=== PATIENT | female | born 1975 | race Caucasian/White ===

== ENCOUNTER → 2021-01-21 10:07 | Outpatient (CLI) | payer OTHER, MEDICAID, SELFPAY ==
[2021-01-21 11:14] LABS: Hematocrit 41.2 % (36-46); Hemoglobin 13.6 g/dL (12.0-16.0); Mean Corpuscular Hemoglobin 26.9 PG (26-34); Mean Corpuscular Volume 81.5 fL (80-100); Platelet Count 328 X10^3/uL (150-400); Red Blood Cell Count 5.06 X10^6/uL (4.0-5.2); Red Cell Distribution Width 13.6 % (11.6-14.8); White Blood Cell Count 9.1 X10^3/uL (4.5-11.0)
[2021-01-21 11:44] LABS: Erythrocyte Sedimentation Rate 18 MM/HR (0-20)
[2021-01-21 11:56] LABS: Alanine Aminotransferase 28 IU/L (<35); Albumin 4.4 g/dL (3.5-5.0); Albumin Globulin Ratio 1.3 (1.0-2.8); Alkaline Phosphatase 101 U/L (38-126); Aspartate Aminotransferase 39 IU/L (14-36); BUN Creatinine Ratio 20.6 (6-22); Bilirubin Total 1.3 mg/dL (0.2-1.3); Blood Urea Nitrogen 20 mg/dL (7-17); C-Reactive Protein Quant 2.5 mg/dL (<1.0); Calcium 9.7 mg/dL (8.4-10.2); Carbon Dioxide 25 mmol/L (22-32); Chloride 103 mmol/L (98-107); Cholesterol 192 mg/dL (140-199); Estimated Glomerular Filt Rate > 60.0 mL/min (>60); Globulin 3.5 g/dL (1.7-4.1); Glucose 78 mg/dL (70-100); HDL Cholesterol 62 mg/dL (40-60); HEMOLYSIS < 15 (0-50); LDL Cholesterol Calculated 101 mg/dL (<100); Potassium 3.7 mmol/L (3.4-5.1); Sodium 137 mmol/L (137-145); Total Protein 7.9 g/dL (6.3-8.2); Triglycerides 146 mg/dL (35-150)
[2021-01-21 12:35] LABS: TSH w/ Reflex to FT4 0.92 uIU/mL (0.47-4.68)
[2021-01-23 15:42] LABS: ANA Screen, IFA Negative (.)
== END ==
PROVIDERS: PCP Nurse Practitioner Family; Referring Provider Nurse Practitioner Family; Visit Provider Nurse Practitioner Family
DX: M25.50 Pain in unspecified joint (principal); I10 Essential (primary) hypertension; J45.909 Unspecified asthma, uncomplicated; Z13.6 Encounter for screening for cardiovascular disorders; F32.9 Major depressive disorder, single episode, unspecified
CPT/HCPCS: 36415; 80053; 80061; 84443; 85027; 85651; 86038; 86140

== ENCOUNTER 2021-03-04 09:05 | Emergency (ER) | payer OTHER, MEDICAID, SELFPAY ==
[2021-03-04] VITALS (8 sets, daily range): BP systolic 122–176; BP diastolic 68–86; PULSE 80–97; RESP 16–23; TEMP 36.8; O2SAT 94–99; BMI 37.5
--- NOTE | 2021-03-04 09:17 | DI.RAD.S_ITS ---
PROCEDURE: XR CHEST 1V INDICATIONS: chest pain TECHNIQUE: One view of the chest was acquired. COMPARISON: None. FINDINGS: Surgical changes and devices: None. Lungs and pleura: Lungs are clear. No pleural effusions or pneumothorax. Mediastinum: Mediastinal contours appear normal. Heart size is normal. Bones and chest wall: No suspicious bony lesions. Overlying soft tissues appear unremarkable. IMPRESSION: No acute disease. Dictated by: Marcel Sethi M.D. on 03/04/2021 at 9:40 Approved by: Marcel Sethi M.D. on 03/04/2021 at 9:43
[2021-03-04 09:33] LABS: Add Manual Diff / Slide Review NO; Basophils Absolute Auto 100 /uL (0-100); Basophils Percent Auto 0.7 % (0-2); Eosinophils Absolute Auto 0 /uL (0-450); Eosinophils Percent Auto 0.4 % (2-4); Hematocrit 40.6 % (36-46); Hemoglobin 13.4 g/dL (12.0-16.0); Lymphocytes Absolute Auto 2900 /uL (1100-4500); Mean Corpuscular HGB Conc 32.9 % (30-36); Mean Corpuscular Hemoglobin 26.8 PG (26-34); Mean Corpuscular Volume 81.4 fL (80-100); Monocytes Absolute Auto 400 /uL (0-900); Monocytes Percent Auto 4.6 % (3-14); Neutrophils Absolute Auto 5900 /uL (1500-7000); Neutrophils Percent Auto 63.3 % (50-75); Platelet Count 372 X10^3/uL (150-400); Red Blood Cell Count 4.99 X10^6/uL (4.0-5.2); Red Cell Distribution Width 13.8 % (11.6-14.8); White Blood Cell Count 9.4 X10^3/uL (4.5-11.0)
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
[2021-03-04 09:42] LABS: Alanine Aminotransferase 16 IU/L (<35); Albumin 4.2 g/dL (3.5-5.0); Albumin Globulin Ratio 1.2 (1.0-2.8); Alkaline Phosphatase 74 U/L (38-126); Aspartate Aminotransferase 41 IU/L (14-36); BUN Creatinine Ratio 23.6 (6-22); Bilirubin Total 0.9 mg/dL (0.2-1.3); Blood Urea Nitrogen 21 mg/dL (7-17); Calcium 9.6 mg/dL (8.4-10.2); Carbon Dioxide 24 mmol/L (22-32); Chloride 103 mmol/L (98-107); Creatine Kinase 209 U/L (30-135); Estimated Glomerular Filt Rate > 60.0 mL/min (>60); Globulin 3.6 g/dL (1.7-4.1); Glucose 94 mg/dL (70-100); HEMOLYSIS < 15 (0-50); Lipase 143 U/L (23-300); Potassium 3.4 mmol/L (3.4-5.1); Sodium 138 mmol/L (137-145); Total Protein 7.8 g/dL (6.3-8.2)
[2021-03-04] MEDS: ASPIRIN 81 MG CHEW TAB 324 MG PO (09:43)
[2021-03-04] MEDS: SODIUM CHLORIDE 0.9% 1,000 ML 150 ML IV (09:45)
[2021-03-04] MEDS: NITROGLYCERIN 0.4 MG SL TAB SL (09:45)
[2021-03-04 09:54] LABS: NT-proBNP (BNP-Adult 18+) 54 pg/mL (<125); Troponin I < 0.012 ng/mL (0.01-0.034)
[2021-03-04 09:57] LABS: CKMB % Relative Index 0.5 % (1.5-5.0); Creatine Kinase MB 1.09 ng/mL (<2.37)
[2021-03-04 10:08] LABS: C-Reactive Protein Quant 3.1 mg/dL (<1.0)
[2021-03-04 10:12] LABS: D Dimer 396 ng/mL (<230)
[2021-03-04 10:16] LABS: Erythrocyte Sedimentation Rate 26 MM/HR (0-20)
--- NOTE | 2021-03-04 10:49 | DI.CT.S_ITS ---
PROCEDURE: CT ANGIO CHEST PE PROTOCOL INDICATIONS: chest pain, tachycardia, critical dimer, smoker, contr TECHNIQUE: After the administration of intravenous contrast, 2 mm thick sections acquired from the pulmonary apices to the posterior costophrenic angles. 3-dimensional maximum intensity projection (MIP) coronal and sagittal reformats were then acquired through the thorax. For radiation dose reduction, the following was used: automated exposure control, adjustment of mA and/or kV according to patient size. COMPARISON: None. FINDINGS: Image quality: Excellent. Pulmonary arteries: Pulmonary arteries are normal in size, and demonstrate no intraluminal filling defects to suggest central pulmonary embolism. Lungs and pleura: Lungs are clear. No pleural effusions or pneumothorax. Central and peripheral airways are patent. Mediastinum: Heart size is normal, without pericardial effusion. No mediastinal or hilar adenopathy. Thoracic aorta is normal in caliber and enhancement. Esophagus is normal in caliber, without hiatal hernia. Bones and chest wall: No suspicious bony lesions. Ribs and thoracic spine appear intact throughout. No axillary or supraclavicular adenopathy. Abdomen: Visualized upper abdominal solid organs appear normal in the early arterial phase of enhancement. IMPRESSION: No pulmonary embolism or other acute finding in the chest. Dictated by: James Woodward M.D. on 03/04/2021 at 10:56 Approved by: James Woodward M.D. on 03/04/2021 at 10:57
[2021-03-04 12:24] LABS: Troponin I < 0.012 ng/mL (0.01-0.034)
== END 2021-03-04 12:52 | disposition home or self-care (01) ==
PROVIDERS: Emergency Provider Emergency Medicine; PCP Nurse Practitioner Family
DX: R07.89 Other chest pain (principal); R00.0 Tachycardia, unspecified
CPT/HCPCS: 36415; 71045; 71275; 80053; 82550; 82553; 83690; 83880; 84484; 85025; 85379; 85651; 86140; 93005; 96360; 96361; 99284; Q9967

== ENCOUNTER → 2021-05-16 09:53 | Outpatient (CLI) | payer OTHER, MEDICAID, SELFPAY ==
[2021-05-16 13:48] LABS: COVID19 -Nasal RAPID Negative (Negative)
== END ==
PROVIDERS: PCP Nurse Practitioner Family; Visit Provider Surgery
DX: Z20.822 Contact with and (suspected) exposure to COVID-19 (principal); Z01.812 Encounter for preprocedural laboratory examination
CPT/HCPCS: 87635; C9803

== ENCOUNTER 2021-05-19 13:49 | Day surgery (SDC) | payer OTHER, MEDICAID, SELFPAY ==
[2021-05-19] VITALS (7 sets, daily range): BP systolic 122–140; BP diastolic 70–87; PULSE 83–104; RESP 13–17; TEMP 36–36.7; O2SAT 95–99; BMI 37.3
[2021-05-19] MEDS: LACTATED RINGERS 1,000 ML 84 ML IV (14:15)
--- NOTE | 2021-05-19 15:36 | PM.HP.1 ---
History of Present Illness History of Present Illness Date Patient Seen: 05/19/21 Time Patient Seen: 15:36 Chief complaint: DX COLONOSCOPY Narrative: H/o colon polyps, grandmother had colon cancer. No new GI symptoms. Last scope was 6 years. Patient History Medical History Ankle pain (~1979) Anorexia nervosa Anxiety (~1982) Asthma (~1990) Chicken pox (~1978) Depression (2018) Essential hypertension (2015) Foot pain (~1979) History of colon polyps (2013) Human papilloma virus (~2014) Joint pain Osteoarthritis (~2004) Psoriasis (~1986) Wears glasses Surgical History Anesthesia History of ankle surgery (~1979) History of section (~12/28/05) Family & Social History Family History Father Diabetes mellitus History of heart disease Hypertension Hyperlipidemia Stroke Mother Cancer Diabetes mellitus Multiple myeloma Brother Stroke History of heart disease Hypertension Sister Hypertension History of heart disease Sister Mental health problem Social History: household members significant other Tobacco & Substance use: Smoking Status Never smoker alcohol intake current alcohol intake frequency holiday/special occasion Substance Use Type marijuana Meds Home Medications and Allergies Home Medications Medication Instructions Recorded Confirmed Type albuterol sulfate 90 mcg/actuation 2 puff INHALATION Q4-6H PRN #8.5 g 01/15/21 05/19/21 History aerosol inhaler (Proventil HFA) bupropion HCl 300 mg 24 hr tablet, 300 mg PO QAM 01/15/21 05/19/21 History extended release (Wellbutrin XL) losartan 100 1 tab PO DAILY 01/15/21 05/19/21 History mg-hydrochlorothiazide 25 mg tablet meloxicam 7.5 mg tablet 7.5 mg PO DAILY 01/15/21 05/19/21 History norgestimate 0.18 mg/0.215 mg/0.25 1 tab PO DAILY 01/15/21 05/19/21 History mg-ethinyl estradiol 25 mcg tablet (Tri-Lo-Blanche) pregabalin 75 mg capsule (Lyrica) 75 mg PO TID #90 cap 05/06/21 05/19/21 Rx Allergies Allergy/AdvReac Type Severity Reaction Status Date / Time lactose AdvReac Intermediate GI upset Verified 05/19/21 14:05 soy AdvReac Intermediate GI upset Verified 05/19/21 14:05 morphine AdvReac Mild ITCHING Verified 05/19/21 14:05 Exam Vital Signs (past 8 hours): - 05/19/21 14:07 Temperature 98 F Pulse Rate 97 H Respiratory Rate 16 Blood Pressure 133/85 Pulse Oximetry 99 Oxygen Delivery Method Room Air Oxygen Flow Rate 0 Const General: cooperative and healthy appearing HENMT Head: normal to inspection Ears: hearing grossly normal bilaterally Eyes General: appearance normal, both eyes and all related structures Neck Neck: trachea midline Resp Effort & Inspection: normal respiratory effort and able to speak in complete sentences Auscultation: clear to auscultation bilaterally Cardio Rate: regular rate Rhythm: regular rhythm GI Inspection: normal to inspection Skin General: no rashes or lesions noted Neuro Cognition: normal cognition Extrem General: full ROM Psych Appearance: grossly normal Judgment: judgment good Assessment & Plan Assessment & Plan narrative: h/o colon polyps, here for colonoscopy with moderated sedation COVID-19 COVID-19 status: Negative Time Spent With Patient Time with patient: less than 30 minutes Critical Care time: I spent a total of [] minutes of critical care time on this patient's care today; this time is exclusive of procedural time.
[2021-05-19] MEDS: fentaNYL 250 MCG/5 ML INJ IV (15:48)
[2021-05-19] MEDS: MIDAZOLAM 5 MG/5 ML VIAL IV (15:48)
--- NOTE | 2021-05-19 15:59 | PM.OP.ENDO ---
Operative Date/Time/Diagnoses Date of procedure: 05/19/21 Time of procedure: 15:59 Pre-op diagnosis: h/o colon polyps Post-op diagnosis: same Procedure & Clinicians Study performed: Colonoscopy Same procedure as scheduled: Yes Indications: History of colon polyps Surgeon: Sandhya Garcia Procedure Notes SCOAP/Timeout: Done Procedure in detail: Preop diagnosis: History of colon polyps Postop diagnosis: Same Operative procedure: Colonoscopy with moderate sedation Surgeon: Jenny Garcia MD Anesthetic: Fentanyl 200 micro g, Versed 8 mg Findings: No diverticulosis, no polyps Procedure: Patient is placed in a lateral position. Rectal exam is performed showing normal tone no masses. Colonoscope inserted into the rectum and advanced to ileocecal valve with minimal difficulty. Insufflation obstruction the scope and the above findings. Impression: No polyps identified on this colonoscopy. No significant diverticulosis. Plan: Repeat colonoscopy in 5 years due to history of colon polyps and unknown age of grandmother with colon cancer diagnosis Scope withdrawal time: 4 minutes Sedation minutes: 16 Specimen(s): none sent Complications: none Impression: No polyps, no significant diverticulosis Post-procedure Recommendations: Colonscopy in 5 years and Continue medication(s) Plan for aftercare: Home. Good hydration. Follow up: as needed Disposition: PACU
== END 2021-05-19 16:45 | disposition home or self-care (01) ==
PROVIDERS: PCP Nurse Practitioner Family; Referring Provider Surgery; Visit Provider Surgery
PROC: 0DJD8ZZ Inspection of Lower Intestinal Tract, Via Natural or Artificial Opening Endoscopic (ICD-10-PCS; CPT 45378; principal; 2021-05-19 15:15)
DX: Z86.010 Personal history of colon polyps (principal); Z80.0 Family history of malignant neoplasm of digestive organs; Z12.11 Encounter for screening for malignant neoplasm of colon; I10 Essential (primary) hypertension; F41.9 Anxiety disorder, unspecified; F32.A Depression, unspecified
CPT/HCPCS: G0105; 99152; J2250; J3010

== ENCOUNTER → 2022-03-21 08:01 | Outpatient (CLI) | payer OTHER, MEDICAID, SELFPAY ==
[2022-03-21 09:30] LABS: Add Manual Diff / Slide Review NO; Basophils Absolute Auto 0 /uL (0-100); Basophils Percent Auto 0.5 % (0-2); Eosinophils Absolute Auto 100 /uL (0-450); Hematocrit 37.1 % (36-46); Hemoglobin 12.7 g/dL (12.0-16.0); Lymphocytes Absolute Auto 2700 /uL (1100-4500); Lymphocytes Percent Auto 39.3 % (25-40); Mean Corpuscular HGB Conc 34.2 % (30-36); Mean Corpuscular Hemoglobin 27.8 PG (26-34); Mean Corpuscular Volume 81.4 fL (80-100); Monocytes Absolute Auto 300 /uL (0-900); Monocytes Percent Auto 4.2 % (3-14); Neutrophils Absolute Auto 3700 /uL (1500-7000); Platelet Count 309 X10^3/uL (150-400); Red Blood Cell Count 4.56 X10^6/uL (4.0-5.2); Red Cell Distribution Width 13.7 % (11.6-14.8); White Blood Cell Count 6.8 X10^3/uL (4.5-11.0)
[2022-03-21 09:46] LABS: Alanine Aminotransferase 17 IU/L (<35); Albumin 3.9 g/dL (3.5-5.0); Albumin Globulin Ratio 1.3 (1.0-2.8); Alkaline Phosphatase 77 U/L (38-126); Aspartate Aminotransferase 24 IU/L (14-36); BUN Creatinine Ratio 16.5 (6-22); Bilirubin Total 0.9 mg/dL (0.2-1.3); Blood Urea Nitrogen 20 mg/dL (7-17); C-Reactive Protein Quant 3.1 mg/dL (<1.0); Calcium 9.3 mg/dL (8.4-10.2); Carbon Dioxide 28 mmol/L (22-32); Chloride 104 mmol/L (98-107); Estimated Glomerular Filt Rate 56 mL/min (>60); Globulin 2.9 g/dL (1.7-4.1); Glucose 80 mg/dL (70-100); Potassium 4.4 mmol/L (3.4-5.1); Sodium 140 mmol/L (137-145); Total Protein 6.8 g/dL (6.3-8.2); Uric Acid 6.2 mg/dL (2.5-6.2)
[2022-03-21 09:50] LABS: Creatinine Urine Random 157.3 mg/dL; HEMOLYSIS < 15 (0-50)
[2022-03-21 09:54] LABS: Microalbumi Creatinin Ratio Ur 9.5 ug/mg CR (<30); Microalbumin Urine Random 1.5 mg/dL (0-1.6)
[2022-03-21 09:55] LABS: Rheumatoid Factor < 8.6 IU/mL (<12.0)
[2022-03-21 10:14] LABS: TSH w/ Reflex to FT4 0.48 uIU/mL (0.47-4.68)
[2022-03-21 10:40] LABS: Erythrocyte Sedimentation Rate 18 MM/HR (0-20)
[2022-03-25 13:59] LABS: ANA Screen, IFA Negative (.)
== END ==
PROVIDERS: PCP Pediatrics; Referring Provider Pediatrics; Visit Provider Pediatrics
DX: Z01.419 Encounter for gynecological examination (general) (routine) without abnormal findings (principal); I10 Essential (primary) hypertension; J45.909 Unspecified asthma, uncomplicated; M25.50 Pain in unspecified joint
CPT/HCPCS: 36415; 80053; 82043; 82570; 84443; 84550; 85025; 85651; 86038; 86140; 86430

== ENCOUNTER → 2022-06-11 08:39 | Outpatient (CLI) | payer OTHER, MEDICAID, SELFPAY ==
[2022-06-11 10:31] LABS: BUN Creatinine Ratio 15.4 (6-22); Blood Urea Nitrogen 16 mg/dL (7-17); Calcium 9.3 mg/dL (8.4-10.2); Carbon Dioxide 23 mmol/L (22-32); Chloride 101 mmol/L (98-107); Cholesterol 165 mg/dL (140-199); Estimated Glomerular Filt Rate > 60 mL/min (>60); Glucose 76 mg/dL (70-100); HDL Cholesterol 62 mg/dL (40-60); HEMOLYSIS < 15 (0-50); LDL Cholesterol Calculated 81 mg/dL (<100); Potassium 4.1 mmol/L (3.4-5.1); Sodium 137 mmol/L (137-145); Triglycerides 109 mg/dL (35-150)
== END ==
PROVIDERS: PCP Family Medicine; Referring Provider Family Medicine; Visit Provider Family Medicine
DX: I10 Essential (primary) hypertension (principal); R79.89 Other specified abnormal findings of blood chemistry
CPT/HCPCS: 36415; 80048; 80061; 83036

== ENCOUNTER → 2024-02-20 09:55 | Outpatient (CLI) | payer OTHER, MEDICAID, SELFPAY ==
[2024-02-20 10:47] LABS: Influenza A - CEPHEID Flu A NEGATIVE (NEGATIVE); Influenza B - CEPHEID Flu B NEGATIVE (NEGATIVE); Respiratory Syncytial Virus Negative (Negative)
[2024-02-20 10:48] LABS: COVID-19 CEPHEID 4-PLEX PCR Negative (Negative)
== END ==
PROVIDERS: PCP Family Medicine; Visit Provider Registered Nurse
DX: J02.9 Acute pharyngitis, unspecified (principal); R05.9 Cough, unspecified; R22.0 Localized swelling, mass and lump, head; R59.1 Generalized enlarged lymph nodes
CPT/HCPCS: 87635; 87400 ×2; 87420; 0241U; 36415; 70491; 80053; 85025; 87070; 99283; 99284; Q9967

== ENCOUNTER 2024-02-20 15:36 | Emergency (ER) | payer OTHER, MEDICAID, SELFPAY ==
[2024-02-20] VITALS (9 sets, daily range): BP systolic 133–150; BP diastolic 70–95; PULSE 76–96; RESP 16; TEMP 37.1; O2SAT 95–99; BMI 36.9
--- NOTE | 2024-02-20 18:28 | ED.GENADULT ---
HPI - General Adult General Chief complaint: Upper Respiratory Symptoms Stated complaint: painful swollen lymph nodes Time Seen by Provider: 02/20/24 18:26 History of Present Illness HPI narrative: 48-year-old female with history of psoriatic arthritis on methotrexate presents for 2 days of right-sided swollen lymph nodes patient states that she has had a mild sore throat preceding symptoms, and today she noticed a little bit of redness and irritation/puffiness over her right eye. Otherwise she has been in her usual state of health until today. Yesterday she went to the walk-in clinic, where she tested negative for strep, COVID, flu, RSV, and she was discharged home. She states that the lymph nodes feel even bigger today and so she was presenting for repeat evaluation. Related Data Home Medications Medication Instructions Recorded Confirmed folic acid 1 mg tablet 1 mg PO DAILY 07/13/23 09/15/23 methotrexate sodium 2.5 mg tablet 10 mg PO DAILY 07/13/23 09/15/23 Previous Rx's Medication Instructions Recorded albuterol sulfate 90 mcg/actuation 2 puff inhalation Q4-6H PRN asthma 08/11/22 aerosol inhaler (Proventil HFA) #8.5 grams bupropion HCl 300 mg 24 hr tablet, 300 mg PO QAM #90 tabs 06/18/23 extended release (Wellbutrin XL) losartan 100 mg tablet 100 mg PO DAILY blood pressure #90 07/13/23 tabs amlodipine 5 mg tablet 5 mg PO DAILY #90 tabs 09/03/23 cephalexin 500 mg capsule 500 mg PO QID #20 caps 02/20/24 Allergies Allergy/AdvReac Type Severity Reaction Status Date / Time casein Allergy Intermediate vomiting Verified 02/20/24 09:31 soy AdvReac Intermediate GI upset Verified 02/20/24 09:31 morphine AdvReac Mild ITCHING Verified 02/20/24 09:31 Patient History Medical History DARRYL (generalized anxiety disorder) Elevated serum creatinine Nail pitting Chronic pain in right foot Wears glasses Psoriasis (~1986) Osteoarthritis (~2004) Anxiety (~1982) Anorexia nervosa Foot pain (~1979) Ankle pain (~1979) Chicken pox (~1978) Human papilloma virus (~2014) History of colon polyps (2013) Depression (2018) Asthma (~1990) Essential hypertension (2016) Surgical History Anesthesia History of section (~12/28/05) History of ankle surgery (~1979) Family History Father Diabetes mellitus History of heart disease Hypertension Hyperlipidemia Stroke Mother Cancer Diabetes mellitus Multiple myeloma Brother Stroke History of heart disease Hypertension Sister Hypertension History of heart disease Sister Mental health problem Social History household members: significant other Smoking Status: Never smoker second hand exposure: No alcohol intake: current substance use type: marijuana (smoke, rare.) Smoking Status: Never smoker alcohol intake frequency: holidays/special occasions only Substance Use Type: marijuana Exam Initial Vital Signs Initial Vital Signs: Vital Signs Temperature 98.8 F 02/20/24 16:10 Pulse Rate 86 02/20/24 16:10 Respiratory Rate 16 02/20/24 16:10 Blood Pressure 150/70 H 02/20/24 16:10 Pulse Oximetry 97 02/20/24 16:10 Oxygen Delivery Method Room Air 02/20/24 16:10 Const: Awake, alert, no acute distress, nontoxic appearing HEENT: TM normal bilaterally, pharynx normal, mucous membranes moist, tender submandibular, pre and postauricular, temporal lymph nodes on the right-hand side Cardiac: regular rate, regular rhythm RESP: unlabored, clear bilaterally, no wheezing Skin: Warm, Dry, intact, minimal erythema and warmth overlying right eyebrow. Scalp normal Neuro: AO x3, CN II-XII grossly intact, moves all extremities Course Orders Ordered: Discontinued Medications Cephalexin HCl (Cephalexin 250 Mg Capsule) 1,000 mg PO NOW ONE Stop: 02/20/24 20:30 Last Admin: 02/20/24 20:42 Dose: 1,000 mg Documented By: Vital Signs Vital signs: Vital Signs - 8 hr 02/20/24 16:10 02/20/24 18:13 02/20/24 18:15 Temperature 98.8 F Pulse Rate 86 96 H 92 H Respiratory Rate 16 Blood Pressure 150/70 H Pulse Oximetry 97 98 99 Oxygen Delivery Method Room Air 02/20/24 18:15 02/20/24 18:30 02/20/24 18:30 Temperature Pulse Rate 76 Respiratory Rate Blood Pressure 149/95 H 138/78 Pulse Oximetry 99 Oxygen Delivery Method Medical Decision Making Lab Data 02/20/24 19:05 02/20/24 19:05 Labs: Lab Results 02/20/24 Range/Units 19:05 WBC 5.8 (4.5-11.0) X10^3/uL RBC 4.08 (4.0-5.2) X10^6/uL Hgb 12.3 (12.0-16.0) g/dL Hct 36.5 (36-46) % MCV 89.5 (80-100) fL MCH 30.1 (26-34) PG MCHC 33.6 (30-36) % RDW 14.8 (11.6-14.8) % Plt Count 286 (150-400) X10^3/uL Neut % (Auto) 54.8 (50-75) % Lymph % (Auto) 37.1 (25-40) % Dundy % (Auto) 6.9 (3-14) % Eos % (Auto) 1.0 L (2-4) % Baso % (Auto) 0.2 (0-2) % Neut # (Auto) 3200 (8352-3554) /uL Lymph # (Auto) 2200 (1072-1668) /uL Dundy # (Auto) 400 (0-900) /uL Eos # (Auto) 100 (0-450) /uL Baso # (Auto) 0 (0-100) /uL Sodium 136 L (137-145) mmol/L Potassium 3.7 (3.4-5.1) mmol/L Chloride 106 (98-107) mmol/L Carbon Dioxide 27 (22-32) mmol/L BUN 10 (7-17) mg/dL Creatinine 0.91 (0.52-1.04) mg/dL Estimated GFR > 60 (>60) mL/min BUN/Creatinine Ratio 11.0 (6-22) Glucose 87 (70-100) mg/dL Calcium 8.9 (8.4-10.2) mg/dL Total Bilirubin 0.8 (0.2-1.3) mg/dL AST 59 H (14-36) IU/L ALT 55 H (<35) IU/L Alkaline Phosphatase 81 (38-126) U/L Total Protein 6.8 (6.3-8.2) g/dL Albumin 4.0 (3.5-5.0) g/dL Globulin 2.8 (1.7-4.1) g/dL Albumin/Globulin Ratio 1.4 (1.0-2.8) Imaging Data CT scan - head: Radiologist's Impression: PROCEDURE: CT SOFT TISSUE NECK W CON INDICATIONS: rapid growing R sided neck/face lymph nodes TECHNIQUE: After the administration of intravenous contrast, 3.0 mm axial sections acquired from the sella to the aortic arch. Additional oblique axial 3.0 mm sections acquired through the pharynx. 3 mm thick coronal and sagittal reformats were generated. For radiation dose reduction, the following was used: automated exposure control. COMPARISON: None. FINDINGS: Image quality: Excellent. Lymph nodes: Mildly increased size and number of right level 1 and level 2 lymph nodes. Left-sided lymph nodes are also mildly increased in number, but not as large. A few smaller right level 3 lymph nodes are seen. No significant supraclavicular upper mediastinal lymph nodes. Mildly prominent level 5a lymph nodes are also seen. Vessels: Visualized vasculature appears patent. Neck spaces: The palatine and pharyngeal tonsils appear mildly enlarged. No parapharyngeal fluid collection or abscess is seen. The oropharynx, nasopharynx, and pharynx otherwise demonstrate no mucosal lesions. The vocal cords, false vocal cords, pyriform sinuses, epiglottis, vallecula, and tongue base all appear normal. Glands: Small enhancing lesions within the right parotid gland are most likely mildly enlarged lymph nodes. The left parotid and bilateral submandibular glands appear normal. Thyroid appears normal. Miscellaneous: Mild right periorbital subcutaneous edema. No retro-orbital edema. Globes appear symmetric. Visualized brain appears normal. Lung apices appear clear. Superficial soft tissues appear normal. Bones: No suspicious bony lesions. Visualized sinuses and mastoids appear unremarkable. IMPRESSION: 1. Mild right greater than left upper cervical lymphadenopathy. The largest right level IIa lymph node measures 1.2 cm in short axis. 2. Mild diffuse enlargement of the palatine and pharyngeal tonsils. Findings are suspicious for a nonspecific infectious or inflammatory process. No focal fluid collection or abscess is seen. Recommend clinical correlation and follow-up. No soft tissue mass is seen. However, if symptoms do not resolve, MRI could be performed for further evaluation. 3. Mild nonspecific right periorbital subcutaneous edema. No intraorbital edema is seen. Approved by: Da Lilly M.D. on 02/20/2024 at 19:15 [facility] Narrative Medical decision making narrative: Well-appearing patient with 2 days of worsening right-sided facial and jaw lymph nodes. Patient does have tender, mobile lymph nodes in the right-hand side, however none on the ipsilateral side. No obvious physical exam findings to explain the lymphadenopathy. Scalp is clear of signs of lesions or lice, pharynx normal, there is minimal cellulitis over the right eyebrow however this does not seem to be severe enough to cause such lymphadenopathy. Laboratory work and CT imaging to be obtained. Laboratory work reviewed, no significant abnormalities identified. CT shows cervical lymphadenopathy, mild irritation of the palatine and pharyngeal tonsils, no specific abscess or other abnormalities identified. Patient informed of lab and imaging findings, we will treat empirically as cellulitis since the lymphadenopathy is on the same side as the patient's cellulitis overlying her eyebrow. Uncertain if this was truly resolve lymphadenopathy. Patient advised to follow up with primary care doctor if she continues to have swelling of her lymph nodes even after completing antibiotic treatment. Discharge Plan Departure Patient Disposition: Home Clinical Impression: Facial swelling, Lymphadenopathy Instructions: DI for Cellulitis -- Adult Activity Restrictions/Additional Instructions: Your laboratory work today was normal. Your flu, COVID, strep, and RSV swabs were negative. Your CT showed that you have swollen lymph nodes on the right-hand side of your face, but no obvious mass or cause. The only thing that I can find abnormal on your exam that may be causing this is the redness and irritation over your right eye. We will presumptively treat this as cellulitis with antibiotics. Your 1st dose was given here in the emergency department and your prescription has been sent to [facility] in [place]. Please follow up with your primary care doctor, especially if you do not notice improvement. Prescriptions: New cephalexin 500 mg capsule 500 mg PO QID Qty: 20 0RF No Action albuterol sulfate [Proventil HFA] 90 mcg/actuation HFA aerosol inhaler 2 puff inhalation Q4-6H PRN (Reason: asthma) Qty: 8.5 2RF amlodipine 5 mg tablet 5 mg PO DAILY Qty: 90 3RF Rx Instructions: take one tablet by mouth once daily bupropion HCl [Wellbutrin XL] 300 mg tablet extended release 24 hr 300 mg PO QAM Qty: 90 3RF methotrexate sodium 2.5 mg tablet 10 mg PO DAILY Rx Instructions: 4 tabs in the morning and 4 at night on wednesday folic acid 1 mg tablet 1 mg PO DAILY losartan 100 mg tablet 100 mg PO DAILY Qty: 90 3RF Referrals: Carolyn Maharaj DO [Primary Care Provider] - Stand Alone Forms: Patient Portal/API
[2024-02-20 19:18] LABS: Add Manual Diff / Slide Review NO; Basophils Absolute Auto 0 /uL (0-100); Basophils Percent Auto 0.2 % (0-2); Eosinophils Absolute Auto 100 /uL (0-450); Hematocrit 36.5 % (36-46); Hemoglobin 12.3 g/dL (12.0-16.0); Lymphocytes Absolute Auto 2200 /uL (1100-4500); Lymphocytes Percent Auto 37.1 % (25-40); Mean Corpuscular HGB Conc 33.6 % (30-36); Mean Corpuscular Hemoglobin 30.1 PG (26-34); Mean Corpuscular Volume 89.5 fL (80-100); Monocytes Absolute Auto 400 /uL (0-900); Monocytes Percent Auto 6.9 % (3-14); Neutrophils Absolute Auto 3200 /uL (1500-7000); Neutrophils Percent Auto 54.8 % (50-75); Platelet Count 286 X10^3/uL (150-400); Red Blood Cell Count 4.08 X10^6/uL (4.0-5.2); Red Cell Distribution Width 14.8 % (11.6-14.8); White Blood Cell Count 5.8 X10^3/uL (4.5-11.0)
[2024-02-20 19:23] LABS: Alanine Aminotransferase 55 IU/L (<35); Albumin Globulin Ratio 1.4 (1.0-2.8); Alkaline Phosphatase 81 U/L (38-126); Aspartate Aminotransferase 59 IU/L (14-36); Bilirubin Total 0.8 mg/dL (0.2-1.3); Blood Urea Nitrogen 10 mg/dL (7-17); Calcium 8.9 mg/dL (8.4-10.2); Carbon Dioxide 27 mmol/L (22-32); Chloride 106 mmol/L (98-107); Estimated Glomerular Filt Rate > 60 mL/min (>60); Globulin 2.8 g/dL (1.7-4.1); Glucose 87 mg/dL (70-100); HEMOLYSIS < 15 (0-50); Potassium 3.7 mmol/L (3.4-5.1); Sodium 136 mmol/L (137-145); Total Protein 6.8 g/dL (6.3-8.2)
[2024-02-20] MEDS: cephALEXin 250 MG CAPSULE 1000 MG PO (20:42)
== END 2024-02-20 20:47 | disposition home or self-care (01) ==
PROVIDERS: Emergency Provider Emergency Medicine; PCP Family Medicine
DX: R22.0 Localized swelling, mass and lump, head (principal); R59.1 Generalized enlarged lymph nodes
CPT/HCPCS: 36415; 70491; 80053; 85025; Q9967

== ENCOUNTER 2024-02-24 02:48 | Inpatient (IN) | payer OTHER, MEDICAID, SELFPAY ==
[2024-02-24] VITALS (14 sets, daily range): BP systolic 122–151; BP diastolic 73–89; PULSE 87–114; RESP 18–22; TEMP 36.2–36.6; O2SAT 95–98; BMI 37.5
--- NOTE | 2024-02-24 03:44 | ED.EYEPROB ---
HPI - Eye Problem General Chief complaint: Eye Problems Stated complaint: rt eye swollen, vision loss and pain Time Seen by Provider: 02/24/24 02:50 Source: patient Mode of arrival: Ambulatory History of Present Illness HPI Narrative: 48-year-old female with history of rheumatoid arthritis on methotrexate presents for worsening right facial pain and swelling. Patient is seen by myself on 02/20/2024 for same complaint. Patient underwent unremarkable laboratory work, as well as CT imaging that showed right-sided adenopathy without abscess. Patient was treated for presumptive cellulitis with Keflex and discharged home. Patient states that she has been taking the antibiotics as prescribed but her face is more painful and more swollen than when she left the hospital 3 days prior. Related Data Home Medications Medication Instructions Recorded Confirmed folic acid 1 mg tablet 1 mg PO DAILY 07/13/23 02/24/24 methotrexate 25 mg SUBCUT WEEKLY 02/24/24 02/24/24 Previous Rx's Medication Instructions Recorded albuterol sulfate 90 mcg/actuation 2 puff inhalation Q4-6H PRN asthma 08/11/22 aerosol inhaler (Proventil HFA) #8.5 grams bupropion HCl 300 mg 24 hr tablet, 300 mg PO QAM #90 tabs 06/18/23 extended release (Wellbutrin XL) losartan 100 mg tablet 100 mg PO DAILY blood pressure #90 07/13/23 tabs amlodipine 5 mg tablet 5 mg PO DAILY #90 tabs 09/03/23 Allergies Allergy/AdvReac Type Severity Reaction Status Date / Time casein Allergy Intermediate vomiting Verified 02/20/24 09:31 soy AdvReac Intermediate GI upset Verified 02/20/24 09:31 morphine AdvReac Mild ITCHING Verified 02/20/24 09:31 Milk Containing Products AdvReac Gastrointestinal Verified 02/24/24 09:16 (Dairy) Upset Patient History Medical History DARRYL (generalized anxiety disorder) Elevated serum creatinine Nail pitting Chronic pain in right foot Wears glasses Psoriasis (~1986) Osteoarthritis (~2004) Anxiety (~1982) Anorexia nervosa Foot pain (~1979) Ankle pain (~1979) Chicken pox (~1978) Human papilloma virus (~2014) History of colon polyps (2013) Depression (2018) Asthma (~1990) Essential hypertension (2015) Surgical History Anesthesia History of section (~12/28/05) History of ankle surgery (~1979) Family History Father Diabetes mellitus History of heart disease Hypertension Hyperlipidemia Stroke Mother Cancer Diabetes mellitus Multiple myeloma Brother Stroke History of heart disease Hypertension Sister Hypertension History of heart disease Sister Mental health problem Social History household members: significant other Smoking Status: Never smoker second hand exposure: No alcohol intake: current substance use type: marijuana (smoke, rare.) Smoking Status: Never smoker alcohol intake frequency: holidays/special occasions only Substance Use Type: marijuana Exam Initial Vital Signs Initial Vital Signs: Vital Signs Temperature 97.8 F 02/24/24 03:12 Pulse Rate 98 H 02/24/24 03:12 Respiratory Rate 22 02/24/24 03:12 Blood Pressure 151/76 H 02/24/24 03:12 Pulse Oximetry 98 02/24/24 03:12 Oxygen Delivery Method Room Air 02/24/24 03:12 Const: Awake, alert, no acute distress, nontoxic appearing HEENT: Right-sided facial and periorbital swelling, palpable lymph nodes along right side of face and neck Cardiac: regular rate, regular rhythm RESP: unlabored, clear bilaterally, no wheezing Skin: Warm, Dry, intact, no rashes Neuro: AO x3, CN II-XII grossly intact, moves all extremities Course Orders Ordered: Acetaminophen (Acetaminophen 325 Mg Tablet) 650 mg PO Q6H PRN PRN Reason: Fever/Mild Pain (1-3) Last Admin: 02/24/24 15:05 Dose: 650 mg Documented By: Admin: 02/24/24 10:06 Dose: 650 mg Documented By: RLS Al Hydrox/Mg Hydrox/Simethicone (Mag Hydrox/Alum/Simeth 30 Ml Udc) 30 ml PO Q6HR PRN PRN Reason: Dyspepsia Amlodipine Besylate (Amlodipine 5 Mg Tablet) 5 mg PO DAILY EFRAIN Bupropion HCl (Bupropion Xl 150 Mg Tab) 300 mg PO DAILY EFRAIN Folic Acid (Folic Acid 1 Mg Tablet) 1 mg PO DAILY EFRAIN Ceftriaxone Sodium 2,000 mg/ (Sodium Chloride) 100 mls @ 200 mls/hr IV Q24H EFRAIN Lorazepam (Lorazepam 0.5 Mg Tablet) 0.5 mg PO Q6HR PRN PRN Reason: Anxiety Last Admin: 02/24/24 17:46 Dose: 0.5 mg Documented By: GUDELIA Losartan Potassium (Losartan 50 Mg Tablet) 100 mg PO DAILY EFRAIN Naloxone HCl (Naloxone 0.4 Mg/Ml Vial) 0.2 mg IV Q2MIN PRN PRN Reason: Opiate Reversal Ondansetron HCl (Ondansetron 4 Mg/2 Ml Inj) 4 mg IV Q6HR PRN PRN Reason: Nausea Discontinued Medications Hydrocodone Bitart/Acetaminophen (Hydrocodone/Acet 5/325 Tablet) 1 tab PO NOW ONE Stop: 02/24/24 20:21 Last Admin: 02/24/24 21:01 Dose: 1 tab Documented By: Dexamethasone (Dexamethasone 10 Mg/Ml Vial) 10 mg IV NOW ONE Stop: 02/24/24 03:45 Last Admin: 02/24/24 04:07 Dose: 10 mg Documented By: OLMAN Dexamethasone (Dexamethasone 10 Mg/Ml Vial) 10 mg IV NOW ONE Stop: 02/24/24 17:44 Last Admin: 02/24/24 18:44 Dose: 10 mg Documented By: GUDELIA Vancomycin HCl/Dextrose (Vancomycin) 1,500 mg in 300 mls @ 200 mls/hr IV NOW ONE Stop: 02/24/24 05:13 Last Infusion: 02/24/24 06:09 Dose: Infused Documented By: Admin: 02/24/24 04:39 Dose: 200 mls/hr Documented By: OLMAN Ceftriaxone Sodium 2,000 mg/ (Sodium Chloride) 100 mls @ 200 mls/hr IV NOW ONE Stop: 02/24/24 03:45 Last Infusion: 02/24/24 04:36 Dose: Infused Documented By: Admin: 02/24/24 04:06 Dose: 200 mls/hr Documented By: OLMAN Ketorolac Tromethamine (Ketorolac 30 Mg/Ml Vial) 15 mg IV NOW ONE Stop: 02/24/24 03:44 Last Admin: 02/24/24 04:07 Dose: 15 mg Documented By: OLMAN Ondansetron HCl (Ondansetron 4 Mg/2 Ml Inj) 4 mg IV Q8HR PRN PRN Reason: Nausea And Vomiting Ondansetron HCl (Ondansetron 4 Mg/2 Ml Inj) 4 mg IV Q6HR [facility] Vital Signs Vital signs: Vital Signs - 8 hr 02/24/24 03:12 02/24/24 06:55 Temperature 97.8 F Pulse Rate 98 H 91 H Respiratory Rate 22 Blood Pressure 151/76 H 137/84 Pulse Oximetry 98 97 Oxygen Delivery Method Room Air MDM - Eye Problem Differential Diagnosis Differential diagnosis: Likely corneal abrasion, conjunctivitis and acute iritis Lab Data 02/24/24 03:47 02/24/24 03:47 Labs: Lab Results 02/24/24 Range/Units 03:47 WBC 3.6 L (4.5-11.0) X10^3/uL RBC 4.41 (4.0-5.2) X10^6/uL Hgb 13.1 (12.0-16.0) g/dL Hct 39.6 (36-46) % MCV 89.8 (80-100) fL MCH 29.7 (26-34) PG MCHC 33.0 (30-36) % RDW 14.5 (11.6-14.8) % Plt Count 288 (150-400) X10^3/uL Neut % (Auto) 60.6 (50-75) % Lymph % (Auto) 27.0 (25-40) % Nicholas % (Auto) 8.4 (3-14) % Eos % (Auto) 2.9 (2-4) % Baso % (Auto) 1.1 (0-2) % Neut # (Auto) 2200 (0383-1859) /uL Lymph # (Auto) 1000 L (2986-0635) /uL Nicholas # (Auto) 300 (0-900) /uL Eos # (Auto) 100 (0-450) /uL Baso # (Auto) 0 (0-100) /uL Sodium 141 (137-145) mmol/L Potassium 4.2 (3.4-5.1) mmol/L Chloride 109 H (98-107) mmol/L Carbon Dioxide 26 (22-32) mmol/L BUN 14 (7-17) mg/dL Creatinine 0.86 (0.52-1.04) mg/dL Estimated GFR > 60 (>60) mL/min BUN/Creatinine Ratio 16.3 (6-22) Glucose 101 H (70-100) mg/dL Calcium 8.7 (8.4-10.2) mg/dL Total Bilirubin 0.5 (0.2-1.3) mg/dL AST 41 H (14-36) IU/L ALT 44 H (<35) IU/L Alkaline Phosphatase 82 (38-126) U/L Total Protein 7.2 (6.3-8.2) g/dL Albumin 4.1 (3.5-5.0) g/dL Globulin 3.1 (1.7-4.1) g/dL Albumin/Globulin Ratio 1.3 (1.0-2.8) MDM Narrative Medical decision making narrative: Worsening cellulitis and swelling along right side of face. Patient has been on Keflex for the last several days and patient reports compliance with this medication. Given vancomycin and Rocephin as well as steroids. Repeat laboratory work is without significant change from prior. We will admit for observation for additional treatment. Discharge Plan Departure Patient Disposition: Admitted as Observation Clinical Impression: Cellulitis of face Admit Date/Time: 02/24/24 07:45 Admit Provider: Kendall Alba
[2024-02-24 03:59] LABS: Add Manual Diff / Slide Review NO; Basophils Absolute Auto 0 /uL (0-100); Basophils Percent Auto 1.1 % (0-2); Eosinophils Absolute Auto 100 /uL (0-450); Eosinophils Percent Auto 2.9 % (2-4); Hematocrit 39.6 % (36-46); Hemoglobin 13.1 g/dL (12.0-16.0); Lymphocytes Absolute Auto 1000 /uL (1100-4500); Mean Corpuscular Hemoglobin 29.7 PG (26-34); Mean Corpuscular Volume 89.8 fL (80-100); Monocytes Absolute Auto 300 /uL (0-900); Monocytes Percent Auto 8.4 % (3-14); Neutrophils Absolute Auto 2200 /uL (1500-7000); Neutrophils Percent Auto 60.6 % (50-75); Platelet Count 288 X10^3/uL (150-400); Red Blood Cell Count 4.41 X10^6/uL (4.0-5.2); Red Cell Distribution Width 14.5 % (11.6-14.8); White Blood Cell Count 3.6 X10^3/uL (4.5-11.0)
[2024-02-24] MEDS: cefTRIAXone 2,000 MG in SODIUM CHLORIDE 0.9% 100 ML 200 MG IV (04:06)
[2024-02-24] MEDS: DEXAMETHASONE 10 MG/ML VIAL IV ×2 (04:07→18:44)
[2024-02-24] MEDS: KETOROLAC 30 MG/ML VIAL 15 MG IV (04:07)
[2024-02-24 04:25] LABS: Alanine Aminotransferase 44 IU/L (<35); Albumin 4.1 g/dL (3.5-5.0); Albumin Globulin Ratio 1.3 (1.0-2.8); Alkaline Phosphatase 82 U/L (38-126); Aspartate Aminotransferase 41 IU/L (14-36); BUN Creatinine Ratio 16.3 (6-22); Bilirubin Total 0.5 mg/dL (0.2-1.3); Blood Urea Nitrogen 14 mg/dL (7-17); Calcium 8.7 mg/dL (8.4-10.2); Carbon Dioxide 26 mmol/L (22-32); Chloride 109 mmol/L (98-107); Estimated Glomerular Filt Rate > 60 mL/min (>60); Globulin 3.1 g/dL (1.7-4.1); Glucose 101 mg/dL (70-100); HEMOLYSIS < 15 (0-50); Potassium 4.2 mmol/L (3.4-5.1); Sodium 141 mmol/L (137-145); Total Protein 7.2 g/dL (6.3-8.2)
[2024-02-24] MEDS: VANCOMYCIN 1,500 MG/300 ML PIGGYBACK 200 MG IV (04:39)
--- NOTE | 2024-02-24 08:39 | PM.HP.1 ---
History of Present Illness History of Present Illness Chief complaint: rt eye swollen, vision loss and pain Narrative: From ED doctor: SATHYA Narrative: 48-year-old female with history of rheumatoid arthritis on methotrexate presents for worsening right facial pain and swelling. Patient is seen by myself on 02/20/2024 for same complaint. Patient underwent unremarkable laboratory work, as well as CT imaging that showed right-sided adenopathy without abscess. Patient was treated for presumptive cellulitis with Keflex and discharged home. Patient states that she has been taking the antibiotics as prescribed but her face is more painful and more swollen than when she left the hospital 3 days prior. S: This is been going on for about 6 days. Imaging on the indicated prominent adenopathy. Her rash began with 2 flat red spots above her right eye. These then became lump in the area began to swollen turned red. She then developed redness below her eye and swelling front of the ear and then behind her ear. She has been on cephalexin outpatient and had progressive symptoms which brought her back to the ED. She was not reimaged. She was given ceftriaxone in the emergency department, she now notes that her lymph nodes are decreasing in sides and then tenderness. She denies any vesicles or water blisters. No clear neuropathic pain. She does not have a history of similar episodes. She denies any clear knowledge of insect bite when this began. No fevers, or chills. [facility] Medical History DARRYL (generalized anxiety disorder) Elevated serum creatinine Nail pitting Chronic pain in right foot Wears glasses Psoriasis (~1986) Osteoarthritis (~2004) Anxiety (~1982) Anorexia nervosa Foot pain (~1979) Ankle pain (~1979) Chicken pox (~1978) Human papilloma virus (~2014) History of colon polyps (2014) Depression (2019) Asthma (~1990) Essential hypertension (2016) Surgical History Anesthesia History of section (~12/28/05) History of ankle surgery (~1979) Family History Father Diabetes mellitus History of heart disease Hypertension Hyperlipidemia Stroke Mother Cancer Diabetes mellitus Multiple myeloma Brother Stroke History of heart disease Hypertension Sister Hypertension History of heart disease Sister Mental health problem Social History household members: significant other Smoking Status: Never smoker second hand exposure: No alcohol intake: current substance use type: marijuana (smoke, rare.) Meds Home Medications and Allergies Home Medications Medication Instructions Recorded Confirmed Type albuterol sulfate 90 mcg/actuation 2 puff inhalation Q4-6H PRN asthma 08/11/22 09/15/23 Rx aerosol inhaler (Proventil HFA) #8.5 grams bupropion HCl 300 mg 24 hr tablet, 300 mg PO QAM #90 tabs 06/18/23 09/15/23 Rx extended release (Wellbutrin XL) folic acid 1 mg tablet 1 mg PO DAILY 07/13/23 09/15/23 History losartan 100 mg tablet 100 mg PO DAILY blood pressure #90 07/13/23 09/15/23 Rx tabs methotrexate sodium 2.5 mg tablet 10 mg PO DAILY 07/13/23 09/15/23 History amlodipine 5 mg tablet 5 mg PO DAILY #90 tabs 09/03/23 09/15/23 Rx cephalexin 500 mg capsule 500 mg PO QID #20 caps 02/20/24 Rx Allergies Allergy/AdvReac Type Severity Reaction Status Date / Time casein Allergy Intermediate vomiting Verified 02/20/24 09:31 soy AdvReac Intermediate GI upset Verified 02/20/24 09:31 morphine AdvReac Mild ITCHING Verified 02/20/24 09:31 Milk Containing Products AdvReac Gastrointestinal Verified 02/24/24 09:16 (Dairy) Upset Review of Systems Review of Systems Narrative: All else reviewed and otherwise unremarkable except as noted in the history and physical. Exam Vital Signs (past 8 hours): - 02/24/24 03:12 02/24/24 06:55 Temperature 97.8 F Pulse Rate 98 H 91 H Respiratory Rate 22 Blood Pressure 151/76 H 137/84 Pulse Oximetry 98 97 Oxygen Delivery Method Room Air Oxygen Delivery Method Room Air Narrative Exam Narrative: NAD, alert and oriented, fluent speech, calm. Normocephalic skull, normal gross ocular exam. Anicteric sclera, symmetric pupils. Oropharynx unremarkable, no droop. Neck supple, midline trachea, no adenopathy. Lungs clear, normal rate and effort. Heart regular, no murmur gallop or rub. Abdomen is soft, non distended and non tender. Extremities are free of edema. Skin is free of rash or lesions. Joints are not swollen or deformed. Judgment appears to be normal. Her skin is red above the eye and most prominently laterally at the 9 through 11 o'clock position. She also has flat red skin below the eye. In palpating the eye there is no fluctuance. There are no vesicles seen. There are 2 small excoriations at 9:30 a.m. and 11:00 a.m.. She does have prominent swollen preauricular and posterior cervical lymph nodes. Objective Imaging CT face:: Radiologist's impression: 1. Mild right greater than left upper cervical lymphadenopathy. The largest right level IIa lymph node measures 1.2 cm in short axis. 2. Mild diffuse enlargement of the palatine and pharyngeal tonsils. Findings are suspicious for a nonspecific infectious or inflammatory process. No focal fluid collection or abscess is seen. Recommend clinical correlation and follow-up. No soft tissue mass is seen. However, if symptoms do not resolve, MRI could be performed for further evaluation. 3. Mild nonspecific right periorbital subcutaneous edema. No intraorbital edema is seen. Labs 02/24/24 03:47 02/24/24 03:47 Labs: Laboratory Results - last 24 hr 02/24/24 03:47 WBC 3.6 L RBC 4.41 Hgb 13.1 Hct 39.6 MCV 89.8 MCH 29.7 MCHC 33.0 RDW 14.5 Plt Count 288 Neut % (Auto) 60.6 Lymph % (Auto) 27.0 [place] % (Auto) 8.4 Eos % (Auto) 2.9 Baso % (Auto) 1.1 Neut # (Auto) 2200 Lymph # (Auto) 1000 L [place] # (Auto) 300 Eos # (Auto) 100 Baso # (Auto) 0 Sodium 141 Potassium 4.2 Chloride 109 H Carbon Dioxide 26 BUN 14 Creatinine 0.86 Estimated GFR > 60 BUN/Creatinine Ratio 16.3 Glucose 101 H Calcium 8.7 Total Bilirubin 0.5 AST 41 H ALT 44 H Alkaline Phosphatase 82 Total Protein 7.2 Albumin 4.1 Globulin 3.1 Albumin/Globulin Ratio 1.3 Assessment & Plan Assessment & Plan narrative: 1. Facial cellulitis (pre-septal) refractory to outpatient treatment, present on admission and active. 2. Hypertension, present on admission and active. 3. Psoriasis on methotrexate, present on admission and active. 4. Asthma, present on admission and active. Plan: -IV antibiotics, ceftriaxone and monitor cellulitis. -continue blood pressure medications and monitor blood pressure. -continue methotrexate on weekly schedule. -albuterol as needed. -nares MRSA swab. The patient was admitted observation status with 1 night anticipated. Her immunocompromised status places her at increased risk for adverse outcomes of soft tissue skin infection. Time-Based Coding :: 35 spent with patient and on the chart (including review of chart, obtaining history, exam, reviewing outside data, placing orders, documenting exam and treatment plan, and counseling patient) on 02/23. Quality MIPS - Admit I confirm the patient?s Advance Care Plan is present, Code status is documented, Surrogate decision maker is in patient?s record [If Yes, STOP here]: Yes MIPS - Meds 'Current medications' to include all prescriptions, [id number] products, herbals, cannabis/cannabidiol products, and vitamin/mineral/dietary (nutritional) supplements. I have utilized all available resources to obtain, update, or review the patient?s current medications. [If Yes, STOP here]: Yes
[2024-02-24] MEDS: ACETAMINOPHEN 325 MG TABLET 650 MG PO ×2 (10:06→15:05)
[2024-02-24 17:08] LABS: MRSA (Nasal) PCR NOT DETECTED (Not Detect)
[2024-02-24] MEDS: LORazepam 0.5 MG TABLET PO (17:46)
[2024-02-24] MEDS: HYDROCODONE/ACET 5/325 TABLET 1 TAB PO (21:01)
[2024-02-25] MEDS: ACETAMINOPHEN 325 MG TABLET 650 MG PO ×2 (05:37→11:33)
[2024-02-25 06:22] LABS: Add Manual Diff / Slide Review NO; Basophils Absolute Auto 0 /uL (0-100); Basophils Percent Auto 0.4 % (0-2); Eosinophils Absolute Auto 0 /uL (0-450); Hematocrit 39.4 % (36-46); Hemoglobin 13.1 g/dL (12.0-16.0); Lymphocytes Absolute Auto 1300 /uL (1100-4500); Lymphocytes Percent Auto 13.1 % (25-40); Mean Corpuscular HGB Conc 33.3 % (30-36); Mean Corpuscular Hemoglobin 29.8 PG (26-34); Mean Corpuscular Volume 89.5 fL (80-100); Monocytes Absolute Auto 100 /uL (0-900); Monocytes Percent Auto 1.4 % (3-14); Neutrophils Absolute Auto 8500 /uL (1500-7000); Neutrophils Percent Auto 85.1 % (50-75); Platelet Count 314 X10^3/uL (150-400); Red Cell Distribution Width 14.7 % (11.6-14.8)
[2024-02-25] MEDS: cefTRIAXone 2,000 MG in SODIUM CHLORIDE 0.9% 100 ML 200 MG IV (06:24)
[2024-02-25 06:38] LABS: BUN Creatinine Ratio 22.1 (6-22); Blood Urea Nitrogen 21 mg/dL (7-17); Calcium 9.1 mg/dL (8.4-10.2); Carbon Dioxide 19 mmol/L (22-32); Chloride 109 mmol/L (98-107); Estimated Glomerular Filt Rate > 60 mL/min (>60); Glucose 132 mg/dL (70-100); HEMOLYSIS < 15 (0-50); Potassium 4.2 mmol/L (3.4-5.1); Sodium 138 mmol/L (137-145)
[2024-02-25 07:00] VITALS: BP 130/77; PULSE 98; RESP 16; TEMP 36.7; O2SAT 96
--- NOTE | 2024-02-25 08:35 | DI.CT.S_ITS ---
PROCEDURE: CT FACIAL BONES W CON INDICATIONS: poss. orbital cellulitis, decreased vision R eye new TECHNIQUE: After the administration of intravenous contrast, 2.5 mm axial sections acquired from the mid-neck to the frontal sinuses, with coronal and sagittal reformats. For radiation dose reduction, the following was used: automated exposure control, adjustment of mA and/or kV according to patient size. COMPARISON: None. FINDINGS: Image quality: Excellent. Soft tissues: Right periorbital cellulitis. No abscess. No soft tissue gas. No radiopaque foreign body. Right globe and orbit intact. Likely reactive lymph nodes. This includes lymph nodes in the right parotid bed. Vascular: Visualized vascular structures appear patent throughout. Bony vascular foramina and canals appear normal. Bones: Facial bones appear intact, without fractures, erosions, or destruction. Visualized portions of the skull base and auditory canals also appear normal. Sinuses: Paranasal sinuses are aerated without fluid levels, mucosal thickening, or mucoceles. Mastoid air cells are aerated. IMPRESSION: Right periorbital cellulitis. With likely reactive adenopathy. Dictated by: Ld Guido M.D. on 02/25/2024 at 9:15 Approved by: Ld Guido M.D. on 02/25/2024 at 9:17
--- NOTE | 2024-02-25 11:22 | CM.DANOTE ---
Initial DCP Assessment Note Pt is a 48yo female, resident of [place], arrives with swollen eye vision loss and pain, admitted for further work up and management of orbital cellulitis with vision changes. PCP: Carolyn Maharaj Payer: Edward/CELESTE Reviewed chart, met w/patient to introduce self and role. Patient lives independently with her BF, her three children ; a 30, 27 and 18 yo and her 4 yo grandchild. Patient reports feeling a little overwhelmed with this medical event as she has recently had family members in the hospital and . Patient denies needs from this CM team, reports having access to all basic needs and a supportive family. No barriers identified at this time to patient's safe discharge home w/family to assist; close outpatient f/u recommended. CM team will plan to follow clinical course closely in case any DC needs or concerns arise. DONNIE Thao Discharge Planning/Care Management CM Discharge Assessment Start: 02/25/24 11:14 Freq: Status: Active Protocol: Document 02/25/24 11:14 SUZANNE (Rec: 02/25/24 11:21 SUZANNE [id number]) Discharge Planning Assessment Assigned Engagement Director DONNIE Pratt DPOA/Assigned Designee Name Lucia Lizarraga, daughter Contact Information [phone] Advance Directives? No History Provided By Patient,Medical Record Has Patient been admitted in last 30 No days? Comment Patient seen in the ER 02/19 for same Prior Living Arrangements House Household Members significant other,family, children Type of transporation used prior to Drives own vehicle admit Independent with ADL's Yes Is patient alert and oriented? Yes Barriers to Discharge No Discharge Plan Home Transportation Arrangement Family Referrals Initiated None needed
[2024-02-25] MEDS: LOSARTAN 50 MG TABLET 100 MG PO (11:34)
[2024-02-25] MEDS: buPROPion XL 150 MG TAB 300 MG PO (11:34)
[2024-02-25] MEDS: FOLIC ACID 1 MG TABLET PO (11:34)
[2024-02-25] MEDS: AMLODIPINE 5 MG TABLET PO (11:35)
[2024-02-25] MEDS: PROPARACAINE 0.5% OPHTH SOL 1 DROPS EYE-BOTH (13:54)
--- NOTE | 2024-02-25 15:55 | P.PN_ITS ---
Subjective Subjective Interval history: 48 F admitted with periorbital cellulitis. This morning she reported that starting overnight she developed R eye blurry vision. Repeat CT was ordered, with no sinusitis or abscess. Discussed with ENT whom recommended discussion with ophthalmology. Discussed with convolute tube winder at today whom reviewed CT, was reassured by findings. Patient's visual acuity is 20/40 in L, 20/50 both, and 20/63 in R eye with corrective lenses. ER Provider obtained eye pressures which were 21 in the R and 20 in the L. Exam Vital Signs (past 8 hours): Oxygen Delivery Method Room Air Oxygen Flow Rate 0 Narrative Exam Narrative: NAD, alert and oriented, fluent speech, calm. Normocephalic skull, normal gross ocular exam. Anicteric sclera, symmetric pupils. Oropharynx unremarkable, no droop. Neck supple, midline trachea, no adenopathy. Lungs clear, normal rate and effort. Heart regular, no murmur gallop or rub. Abdomen is soft, non distended and non tender. Extremities are free of edema. Skin is free of rash or lesions. Joints are not swollen or deformed. Judgment appears to be normal. Her skin is red above the eye and most prominently laterally at the 9 through 11 o'clock position, this is reported as slightly improved today. She also has flat red skin below the eye which is also improved. In palpating the eye there is no fluctuance. There are no vesicles seen. There are 2 small excoriations at 9:30 a.m. and 11:00 a.m.. She does have prominent swollen preauricular and posterior cervical lymph nodes. Objective Labs 02/25/24 06:06 02/25/24 06:06 Labs: Laboratory Results - last 24 hr 02/24/24 02/25/24 15:15 06:06 WBC 10.0 D RBC 4.40 Hgb 13.1 Hct 39.4 MCV 89.5 MCH 29.8 MCHC 33.3 RDW 14.7 Plt Count 314 Neut % (Auto) 85.1 H D Lymph % (Auto) 13.1 L [place] % (Auto) 1.4 L Eos % (Auto) 0.0 L Baso % (Auto) 0.4 Neut # (Auto) 8500 H Lymph # (Auto) 1300 [place] # (Auto) 100 Eos # (Auto) 0 Baso # (Auto) 0 Sodium 138 Potassium 4.2 Chloride 109 H Carbon Dioxide 19 L BUN 21 H Creatinine 0.95 Estimated GFR > 60 BUN/Creatinine Ratio 22.1 H Glucose 132 H Calcium 9.1 Nasal Screen MRSA (PCR) Not detected [facility] Medical History DARRYL (generalized anxiety disorder) Elevated serum creatinine Nail pitting Chronic pain in right foot Wears glasses Psoriasis (~1986) Osteoarthritis (~2004) Anxiety (~1982) Anorexia nervosa Foot pain (~1979) Ankle pain (~1979) Chicken pox (~1978) Human papilloma virus (~2014) History of colon polyps (2013) Depression (2019) Asthma (~1990) Essential hypertension (2015) Surgical History Anesthesia History of section (~12/28/05) History of ankle surgery (~1979) Family History Father Diabetes mellitus History of heart disease Hypertension Hyperlipidemia Stroke Mother Cancer Diabetes mellitus Multiple myeloma Brother Stroke History of heart disease Hypertension Sister Hypertension History of heart disease Sister Mental health problem Social History household members: significant other, family and children Smoking Status: Never smoker second hand exposure: No alcohol intake: current substance use type: marijuana (smoke, rare.) Assessment & Plan Assessment & Plan narrative: 1. Periorbital cellulitis (pre-septal) refractory to outpatient treatment, present on admission and active. 2. Hypertension, present on admission and active. 3. Psoriasis on methotrexate, present on admission and active. 4. Asthma, present on admission and active. Plan: -IV antibiotics, ceftriaxone and added vancomycin back today with development of blurry vision today despite negative MRSA swab. Will continue to monitor. -Discussed extensively with ENT and then ophthalmology at today. Continue IV antibiotics, reassuring story for a periorbital cellulitis and not an orbital cellulitis given imaging today with development of blurry vision and diplopia. R eye pressure was 21, L was 20 measured by ER physician. R visual acuity is 20/60, both 20/50 and L 20/40 with corrective lenses. -continue blood pressure medications and monitor blood pressure. -continue methotrexate on weekly schedule. -albuterol as needed. Changed to inpatient. Possible discharge home in the next 1-2 days depending on improvement in visual symptoms. Time-Based Coding :: [TOTAL MINUTES] spent with patient and on the chart (including review of chart, obtaining history, exam, reviewing outside data, placing orders, documenting exam and treatment plan, and counseling patient) on [DATE]. Quality VTE Deep Vein Thrombosis/Pulmonary Embolism Present on Admission: No
[2024-02-25] MEDS: VANCOMYCIN 1,000 MG/200 ML PIGGYBACK 200 MG IV (16:27)
[2024-02-25] MEDS: HYDROCODONE/ACET 5/325 TABLET 1 TAB PO (18:38)
[2024-02-25 19:00] VITALS: BP 126/72; PULSE 86; RESP 18; TEMP 36.9; O2SAT 96
[2024-02-26] MEDS: HYDROCODONE/ACET 5/325 TABLET 1 TAB PO ×4 (03:58→17:54)
[2024-02-26] MEDS: VANCOMYCIN 1,000 MG/200 ML PIGGYBACK 200 MG IV ×2 (04:01→16:47)
[2024-02-26] MEDS: cefTRIAXone 2,000 MG in SODIUM CHLORIDE 0.9% 100 ML 200 MG IV (06:26)
[2024-02-26 07:00] VITALS: BP 116/78; PULSE 75; RESP 16; TEMP 36.5; O2SAT 97
[2024-02-26 07:47] LABS: Add Manual Diff / Slide Review NO; Basophils Absolute Auto 0 /uL (0-100); Basophils Percent Auto 0.1 % (0-2); Eosinophils Absolute Auto 0 /uL (0-450); Hematocrit 40.3 % (36-46); Hemoglobin 13.4 g/dL (12.0-16.0); Lymphocytes Absolute Auto 2300 /uL (1100-4500); Lymphocytes Percent Auto 21.6 % (25-40); Mean Corpuscular HGB Conc 33.3 % (30-36); Mean Corpuscular Hemoglobin 29.9 PG (26-34); Mean Corpuscular Volume 89.7 fL (80-100); Monocytes Absolute Auto 600 /uL (0-900); Monocytes Percent Auto 5.6 % (3-14); Neutrophils Absolute Auto 7900 /uL (1500-7000); Neutrophils Percent Auto 72.7 % (50-75); Platelet Count 309 X10^3/uL (150-400); Red Blood Cell Count 4.49 X10^6/uL (4.0-5.2); White Blood Cell Count 10.9 X10^3/uL (4.5-11.0)
[2024-02-26 07:52] LABS: BUN Creatinine Ratio 25.5 (6-22); Blood Urea Nitrogen 24 mg/dL (7-17); Calcium 9.2 mg/dL (8.4-10.2); Carbon Dioxide 23 mmol/L (22-32); Chloride 105 mmol/L (98-107); Estimated Glomerular Filt Rate > 60 mL/min (>60); Glucose 79 mg/dL (70-100); HEMOLYSIS < 15 (0-50); Potassium 4.2 mmol/L (3.4-5.1); Sodium 139 mmol/L (137-145)
[2024-02-26] MEDS: LOSARTAN 50 MG TABLET 100 MG PO (08:55)
[2024-02-26] MEDS: buPROPion XL 150 MG TAB 300 MG PO (08:55)
[2024-02-26] MEDS: AMLODIPINE 5 MG TABLET PO (08:55)
[2024-02-26] MEDS: FOLIC ACID 1 MG TABLET PO (08:55)
[2024-02-26] MEDS: LORazepam 0.5 MG TABLET PO ×2 (12:57→20:04)
--- NOTE | 2024-02-26 14:49 | PM.PN.1 ---
Subjective Subjective Interval history: 48 F admitted with periorbital cellulitis. Continues to have vision changes in her R eye, stable but not improved today. Exam Vital Signs (past 8 hours): - 02/26/24 07:00 02/26/24 07:50 Temperature 97.7 F Pulse Rate 75 Respiratory Rate 16 Blood Pressure 116/78 Pulse Oximetry 97 Oxygen Delivery Method Room Air Oxygen Flow Rate 0 Oxygen Delivery Method Room Air Oxygen Flow Rate 0 Narrative Exam Narrative: NAD, alert and oriented, fluent speech, calm. Her skin is red above the eye and most prominently laterally at the 9 through 11 o'clock position, this is improved again today. She also has flat red skin below the eye which is also improved. In palpating the eye there is no fluctuance. There are no vesicles seen. There are 2 small excoriations at 9:30 a.m. and 11:00 a.m.. Objective Labs 02/26/24 06:49 02/26/24 06:49 Labs: Laboratory Results - last 24 hr 02/26/24 06:49 WBC 10.9 RBC 4.49 Hgb 13.4 Hct 40.3 MCV 89.7 MCH 29.9 MCHC 33.3 RDW 15.0 H Plt Count 309 Neut % (Auto) 72.7 Lymph % (Auto) 21.6 L [place] % (Auto) 5.6 Eos % (Auto) 0.0 L Baso % (Auto) 0.1 Neut # (Auto) 7900 H Lymph # (Auto) 2300 [place] # (Auto) 600 Eos # (Auto) 0 Baso # (Auto) 0 Sodium 139 Potassium 4.2 Chloride 105 Carbon Dioxide 23 BUN 24 H Creatinine 0.94 Estimated GFR > 60 BUN/Creatinine Ratio 25.5 H Glucose 79 Calcium 9.2 PFSH Medical History DARRYL (generalized anxiety disorder) Elevated serum creatinine Nail pitting Chronic pain in right foot Wears glasses Psoriasis (~1986) Osteoarthritis (~2004) Anxiety (~1982) Anorexia nervosa Foot pain (~1979) Ankle pain (~1979) Chicken pox (~1978) Human papilloma virus (~2014) History of colon polyps (2013) Depression (2019) Asthma (~1990) Essential hypertension (2016) Surgical History Anesthesia History of section (~12/28/05) History of ankle surgery (~1979) Family History Father Diabetes mellitus History of heart disease Hypertension Hyperlipidemia Stroke Mother Cancer Diabetes mellitus Multiple myeloma Brother Stroke History of heart disease Hypertension Sister Hypertension History of heart disease Sister Mental health problem Social History household members: significant other, family and children Smoking Status: Never smoker second hand exposure: No alcohol intake: current substance use type: marijuana (smoke, rare.) Assessment & Plan Assessment & Plan narrative: 1. Periorbital cellulitis (pre-septal) refractory to outpatient treatment, present on admission and active. 2. Hypertension, present on admission and active. 3. Psoriasis on methotrexate, present on admission and active. 4. Asthma, present on admission and active. Plan: -IV antibiotics, ceftriaxone and added vancomycin back 02/24 with development of blurry vision despite negative MRSA swab. Will continue to monitor. -Discussed extensively with ENT and then ophthalmology at on 02/24. Recommended to Continue IV antibiotics, with reassuring story for a periorbital cellulitis and not an orbital cellulitis given imaging despite development of blurry vision and diplopia. R eye pressure was 21, L was 20 measured by ER physician on 02/24. R visual acuity is 20/60, both 20/50 and L 20/40 with corrective lenses. -continue blood pressure medications and monitor blood pressure. -continue methotrexate on weekly schedule. -albuterol as needed. Changed to inpatient. Possible discharge home in the next 1-2 days depending on improvement in visual symptoms. Time-Based Coding :: [TOTAL MINUTES] spent with patient and on the chart (including review of chart, obtaining history, exam, reviewing outside data, placing orders, documenting exam and treatment plan, and counseling patient) on [DATE]. Quality VTE Deep Vein Thrombosis/Pulmonary Embolism Present on Admission: No
[2024-02-26] MEDS: LORATADINE 10 MG TABLET PO (14:50)
[2024-02-26 16:36] LABS: Vancomycin Trough 8.9 ug/mL (10-20)
[2024-02-26] MEDS: VANCOMYCIN TROUGH 1 REQUEST MISC (16:45)
[2024-02-26] MEDS: ONDANSETRON 4 MG/2 ML INJ IV (19:27)
[2024-02-26 19:45] VITALS: BP 115/67; PULSE 70; RESP 18; TEMP 36.6; O2SAT 96
[2024-02-27] MEDS: VANCOMYCIN 1,000 MG/200 ML PIGGYBACK 200 MG IV ×2 (00:31→09:38)
[2024-02-27] MEDS: cefTRIAXone 2,000 MG in SODIUM CHLORIDE 0.9% 100 ML 200 MG IV (06:14)
[2024-02-27] MEDS: ACETAMINOPHEN 325 MG TABLET 650 MG PO (06:14)
[2024-02-27 06:56] LABS: Add Manual Diff / Slide Review NO; Basophils Absolute Auto 0 /uL (0-100); Basophils Percent Auto 0.3 % (0-2); Eosinophils Absolute Auto 0 /uL (0-450); Eosinophils Percent Auto 0.4 % (2-4); Hematocrit 39.9 % (36-46); Hemoglobin 13.2 g/dL (12.0-16.0); Lymphocytes Absolute Auto 3600 /uL (1100-4500); Lymphocytes Percent Auto 53.1 % (25-40); Mean Corpuscular HGB Conc 33.1 % (30-36); Mean Corpuscular Hemoglobin 29.8 PG (26-34); Monocytes Absolute Auto 400 /uL (0-900); Monocytes Percent Auto 6.1 % (3-14); Neutrophils Absolute Auto 2700 /uL (1500-7000); Neutrophils Percent Auto 40.1 % (50-75); Platelet Count 309 X10^3/uL (150-400); Red Blood Cell Count 4.44 X10^6/uL (4.0-5.2); Red Cell Distribution Width 14.5 % (11.6-14.8); White Blood Cell Count 6.9 X10^3/uL (4.5-11.0)
[2024-02-27 07:09] LABS: BUN Creatinine Ratio 21.3 (6-22); Blood Urea Nitrogen 20 mg/dL (7-17); Calcium 9.1 mg/dL (8.4-10.2); Carbon Dioxide 25 mmol/L (22-32); Chloride 104 mmol/L (98-107); Estimated Glomerular Filt Rate > 60 mL/min (>60); Glucose 82 mg/dL (70-100); HEMOLYSIS < 15 (0-50); Potassium 4.1 mmol/L (3.4-5.1); Sodium 137 mmol/L (137-145)
[2024-02-27 08:00] VITALS: BP 134/81; PULSE 80; RESP 16; TEMP 36.7; O2SAT 97
--- NOTE | 2024-02-27 09:02 | PM.DS.1 ---
History of Present Illness History of Present Illness Date Patient Seen: 02/27/24 Time Patient Seen: 09:02 Chief complaint: rt eye swollen, vision loss and pain Narrative: From ED doctor: SATHYA Narrative: 48-year-old female with history of rheumatoid arthritis on methotrexate presents for worsening right facial pain and swelling. Patient is seen by myself on 02/20/2024 for same complaint. Patient underwent unremarkable laboratory work, as well as CT imaging that showed right-sided adenopathy without abscess. Patient was treated for presumptive cellulitis with Keflex and discharged home. Patient states that she has been taking the antibiotics as prescribed but her face is more painful and more swollen than when she left the hospital 3 days prior. S: This is been going on for about 6 days. Imaging on the indicated prominent adenopathy. Her rash began with 2 flat red spots above her right eye. These then became lump in the area began to swollen turned red. She then developed redness below her eye and swelling front of the ear and then behind her ear. She has been on cephalexin outpatient and had progressive symptoms which brought her back to the ED. She was not reimaged. She was given ceftriaxone in the emergency department, she now notes that her lymph nodes are decreasing in sides and then tenderness. She denies any vesicles or water blisters. No clear neuropathic pain. She does not have a history of similar episodes. She denies any clear knowledge of insect bite when this began. No fevers, or chills. Discharge Providers Provider Date of admission: 02/25/24 10:11 Discharge Date: 02/27/24 Primary care physician: Caorlyn Maharaj DO Discharge provider: Gunner Mcdermott DO Summary Hospital Course Discharge Diagnosis: 1. Periorbital cellulitis (pre-septal) refractory to outpatient treatment, present on admission and active. 2. Hypertension, present on admission and active. 3. Psoriasis on methotrexate, present on admission and active. 4. Asthma, present on admission and active. Hospital Course: This is a 48 year old female who was admitted with a periorbital / preseptal cellulitis. She was initially on ceftriaxone and vancomycin, but vancomycin was discontinued after negative MRSA swab. Shortly after this the patient developed diplopia over her R eye and blurry vision. Discussed with ophthalmology at . ER provider measured eye pressures which were reassuring at 21 on the R and 20 on the L. Her R visual acuity was slightly diminished. Vancomycin was restarted and she then began to have improvement in her swelling and slight improvement in her vision. On the day of discharge, she still had diplopia but her vision was improving. She elected for discharge home with continued oral antibiotics. For MRSA coverage, linezolid was selected over bactrim given patient's current medication list and low risk of seretonin syndrome rather than hyperkalemia risk with bactrim. She was advised to follow up with PCP and ideally ophthalmology for continued monitoring as an outpatient and advised not to drive until her vision has returned to normal. Time Spent with Patient Time spent: Less than 30 minutes Exam Vital Signs (past 8 hours): - 02/27/24 08:00 Temperature 98.0 F Pulse Rate 80 Respiratory Rate 16 Blood Pressure 134/81 Pulse Oximetry 97 Oxygen Flow Rate 0 Oxygen Delivery Method Room Air Oxygen Flow Rate 0 Narrative Exam Narrative: NAD, alert and oriented, fluent speech, calm. Her skin is much improved above the eye. Minimal erythema and improvement in swelling. PERRL. Objective Labs 02/27/24 06:30 02/27/24 06:30 Labs: Laboratory Results - last 24 hr 02/26/24 02/27/24 16:05 06:30 WBC 6.9 RBC 4.44 Hgb 13.2 Hct 39.9 MCV 90.0 MCH 29.8 MCHC 33.1 RDW 14.5 Plt Count 309 Neut % (Auto) 40.1 L D Lymph % (Auto) 53.1 H D [place] % (Auto) 6.1 Eos % (Auto) 0.4 L Baso % (Auto) 0.3 Neut # (Auto) 2700 Lymph # (Auto) 3600 [place] # (Auto) 400 Eos # (Auto) 0 Baso # (Auto) 0 Sodium 137 Potassium 4.1 Chloride 104 Carbon Dioxide 25 BUN 20 H Creatinine 0.94 Estimated GFR > 60 BUN/Creatinine Ratio 21.3 Glucose 82 Calcium 9.1 Vancomycin Trough 8.9 L PFSH Medical History DARRYL (generalized anxiety disorder) Elevated serum creatinine Nail pitting Chronic pain in right foot Wears glasses Psoriasis (~1986) Osteoarthritis (~2004) Anxiety (~1982) Anorexia nervosa Foot pain (~1979) Ankle pain (~1979) Chicken pox (~1978) Human papilloma virus (~2014) History of colon polyps (2014) Depression (2019) Asthma (~1990) Essential hypertension (2016) Surgical History Anesthesia History of section (~12/28/05) History of ankle surgery (~1979) Family History Father Diabetes mellitus History of heart disease Hypertension Hyperlipidemia Stroke Mother Cancer Diabetes mellitus Multiple myeloma Brother Stroke History of heart disease Hypertension Sister Hypertension History of heart disease Sister Mental health problem Social History household members: significant other, family and children Smoking Status: Never smoker second hand exposure: No alcohol intake: current substance use type: marijuana (smoke, rare.) Discharge Plan Discharge Plan Patient Disposition: Home Provider Discharge Comment: You were admitted to the hospital with a preseptal or periorbital cellulitis, which improved with antibiotics. Given vision changes recommend against driving until this is back to normal. Continue antibiotics for another 10 days, please follow up with PCP as soon as possible and recommend getting into see an assistant professor of geography as well. Discharge orders & Medications Prescriptions: New hydrocodone-acetaminophen 5-325 mg Tablet 1 tab PO Q4HR PRN (Reason: Pain, Moderate (4-6)) 7 Days Qty: 20 0RF linezolid 600 mg tablet 600 mg PO Q12H 10 Days Qty: 20 0RF hydrocodone-acetaminophen 5-325 mg tablet 1 tab PO Q6H PRN (Reason: pain) 1 Days Qty: 4 0RF linezolid 600 mg tablet 600 mg PO BID 1 Days Qty: 2 0RF Continued albuterol sulfate [Proventil HFA] 90 mcg/actuation HFA aerosol inhaler 2 puff inhalation Q4-6H PRN (Reason: asthma) Qty: 8.5 2RF amlodipine 5 mg tablet 5 mg PO DAILY Qty: 90 3RF Rx Instructions: take one tablet by mouth once daily bupropion HCl [Wellbutrin XL] 300 mg tablet extended release 24 hr 300 mg PO QAM Qty: 90 3RF folic acid 1 mg tablet 1 mg PO DAILY losartan 100 mg tablet 100 mg PO DAILY Qty: 90 3RF methotrexate 25 mg auto-injector 25 mg SUBCUT WEEKLY Follow up/Referrals: Carolyn Maharaj DO [Primary Care Provider] - Diet/Activity/Treatments Diet: Diet as Tolerated and Regular Activity: As tolerated, no restrictions except for driving Visit Report/Discharge Packet Stand Alone Forms: Patient Portal/API, Stroke Signs & Symptoms Discharge Data Primary Care Provider: Carolyn Maharaj Quality VTE Deep Vein Thrombosis/Pulmonary Embolism Present on Admission: No
[2024-02-27] MEDS: LORATADINE 10 MG TABLET PO (09:37)
[2024-02-27] MEDS: LOSARTAN 50 MG TABLET 100 MG PO (09:37)
[2024-02-27] MEDS: FOLIC ACID 1 MG TABLET PO (09:37)
[2024-02-27] MEDS: buPROPion XL 150 MG TAB 300 MG PO (09:37)
[2024-02-27] MEDS: HYDROCODONE/ACET 5/325 TABLET 1 TAB PO (09:37)
[2024-02-27] MEDS: AMLODIPINE 5 MG TABLET PO (09:37)
== END 2024-02-27 11:08 | disposition home or self-care (01) | DRG 383 ==
LOC: ED 07:16 → AC 07:46
PROVIDERS: Admitting Provider Hospitalist; Emergency Provider Emergency Medicine; PCP Family Medicine; Referring Provider Emergency Medicine; Visit Provider Hospitalist
DX: L03.213 Periorbital cellulitis (principal); L40.9 Psoriasis, unspecified; D84.821 Immunodeficiency due to drugs; I10 Essential (primary) hypertension; J45.909 Unspecified asthma, uncomplicated; F32.A Depression, unspecified; Z79.631 Long term (current) use of antimetabolite agent
CPT/HCPCS: 36415; 70487; 80048; 80053; 80202; 85025; 87797; 96365; 96367; 96375; 99284; G0378; A9270; J0696; J1100; J1885; J2405; Q9967

== ENCOUNTER → 2024-12-08 08:12 | Outpatient (CLI) | payer OTHER, SELFPAY ==
[2024-02-24 16:00] VITALS: BMI 37.5
--- NOTE | 2024-12-08 08:13 | DI.MG.S_ITS ---
MM screening mammo BI: 12/08/2024. BI-RADS: 1 CLINICAL: 49-year old female for bilateral screening mammogram. Tyrer-Cuzick lifetime risk of 9.0%. No personal or first-degree family history of breast cancer. Current reported family history of breast cancer: maternal grandmother. PRIOR EXAMS: 06/17/2016, 03/20/2015. MAMMOGRAPHY TECHNIQUE: 2D and 3D (tomosynthesis) digital mammographic views obtained, with additional images as needed for full coverage. Current study was also evaluated with a Computer Aided Detection (CAD) system. DENSITY B. There are scattered areas of fibroglandular density. MAMMOGRAPHY FINDINGS Bilateral: No suspicious mass, asymmetry, microcalcification, or other abnormality seen. IMPRESSION: * No evidence of malignancy. RECOMMENDATIONS Bilateral * Annual screening mammography. OVERALL ASSESSMENT CATEGORY BI-RADS-1: Negative. The [employer] recommends annual screening mammography beginning at age 40 for women with average risk of breast cancer. ELECTRONICALLY SIGNED: Kolby Newsome M.D. on 12/11/2024 at 02:32:04 PM PT Interpreting Station ID: [id number]
--- NOTE | 2024-12-08 08:13 | DI.US.S_ITS ---
PROCEDURE: US PELVIC COMPLETE INDICATIONS: HEAVY PAINFUL PERIODS TECHNIQUE: Real-time scanning was performed of the pelvic organs, with image documentation. Additional endovaginal scanning was necessary due to incomplete visualization of the adnexal and endometrial structures by transabdominal scanning. COMPARISON: None. FINDINGS: Uterus: Uterus is anteverted and normal in size at 8.4 x 6.4 x 4.9 cm. The myometrium is heterogeneous with a Venetian blind appearance concerning for adenomyosis. The endometrium measures 8.7 mm combined thickness. Endometrium is ill-defined. There is a right anterior intramural fibroid measuring 1.8 x 1.5 x 2.0 cm. Ovaries: The right ovary measures 3.3 x 1.7 x 1.8 cm, with a calculated ovarian volume of 5.3 cc. The left ovary measures 3.4 x 1.5 x 1.9 cm, with a calculated ovarian volume of 5.1 cc. The ovaries have a normal sonographic appearance. Less than 12 follicles can be seen in each ovary. No adnexal masses are seen. Other: No pathologic free abdominal or pelvic fluid. IMPRESSION: Heterogeneous uterus with a Venetian blind appearance concerning for adenomyosis. Endometrium is normal in thickness for a premenopausal female measuring 8.7 mm. Intramural fibroid measuring 2.0 cm. The ovaries are normal in appearance. We strive to produce accurate, complete, and clear reports of imaging services. To assist us in improving patient care, this report was composed using standard report templates and voice recognition software. Therefore, it may contain abnormal punctuation, insertions and/or omissions. Occasional wrong-word or sound-alike substitutions may occur. Though we review the report and make efforts to correct it, we do recommend that the report be read carefully in proper context to recognize any text inaccuracies. Dictated by: Barry Wakefield M.D. on 12/08/2024 at 14:01 Approved by: Barry Wakefield M.D. on 12/08/2024 at 14:15
== END ==
PROVIDERS: PCP Family Medicine; Referring Provider Family Medicine; Visit Provider Family Medicine
DX: Z12.31 Encounter for screening mammogram for malignant neoplasm of breast (principal); N94.6 Dysmenorrhea, unspecified; N92.0 Excessive and frequent menstruation with regular cycle; Z80.3 Family history of malignant neoplasm of breast; D25.1 Intramural leiomyoma of uterus
CPT/HCPCS: 76830; 76856; 77063; 77067

== ENCOUNTER 2024-12-21 10:41 | Day surgery (SDC) | payer OTHER, SELFPAY ==
[2024-02-24 16:00] VITALS: BMI 37.5
[2024-12-21] VITALS (8 sets, daily range): BP systolic 124–152; BP diastolic 63–96; PULSE 64–100; RESP 11–33; TEMP 35.9–36.6; O2SAT 99–100; BMI 40.2; BMI 40.1
--- NOTE | 2024-12-21 | PATH_ITS ---
[facility] Accession Number: [id number] No. of containers..01 Tissue . 01 Material submitted: . uterus - UTERUS, CERVIX, BILATERAL FALLOPIAN TUBES . 01 Diagnosis: UTERUS, CERVIX, BILATERAL FALLOPIAN TUBES, HYSTERECTOMY AND BILATERAL SALPINGECTOMY: Uterus with prominent adenomyosis and weakly proliferative endometrium with focal disordered proliferative endometrium. Bilateral fimbriated fallopian tubes with benign paratubal cysts, otherwise unremarkable. Histologically unremarkable cervix. Negative for malignancy. [facility] 12/28/2024 1409 Local . 01 Electronically signed: . Jina Fong DO, Pathologist NPI- [id number] . 01 Gross description: . Received in formalin with two identifiers and uterus, cervix, bilateral fallopian tubes, is an intact uterus (148 grams, 9.9 cm superior to inferior, 6.8 cm medial to lateral, and 5.2 cm anterior to posterior) with attached cervix (3.2 x 3.0 cm), two detached unoriented fimbriated fallopian tubes (5.4 x 0.6 cm and 5.6 x 0.5 cm), and no additional adnexa. . The ectocervix is dawson and glistening with a slit-like os, 0.8 cm in diameter. The anterior paracervical margin is inked blue, while the posterior paracervical margin is inked black. The serosa is dawson and smooth with no hemorrhage or adhesion identified. The endocervical canal has dawson herringbone mucosa and measures 3.2 cm in length. The endometrial cavity is 3.8 cm from cornu to cornu and 5.0 cm in length with red velvety endometrium that averages 0.1 cm thick. The myometrium is dawson and significantly trabecular with numerous small hemorrhagic cavities ranging from 0.2 to 0.3 cm in greatest dimension. No polyps or lesions are identified. . Both tubes have dawson, smooth serosa with cystic structures up to 0.3 cm in greatest dimension filled with cloudy serous fluid. The lumen are stellate and unremarkable. Filler Shredder sections are submitted as follows: . A1: Anterior cervix. A2: Posterior cervix. A3: Anterior full-thickness section. A4: Posterior full-thickness section. A5: Longer fallopian tube. A6: [place] fallopian tube. ([id number]) . The remaining endometrium is submitted as follows: A7-A9: Anterior endometrium from superior to inferior. A10-A12: Posterior endometrium from superior to inferior. ([id number]) /MRV 12/28/2024 0009 Local . 01 Pathologist provided ICD-10: N93.8 . 01 CPT . 499143 Specimen Comment: A courtesy copy of this report has been sent to [phone] Performed at: [address] [address], [place], [place] [id number] MD Rad Capone MD Phone: [phone]
[2024-12-21] MEDS: ACETAMINOPHEN 325 MG TABLET 975 MG PO (11:38)
[2024-12-21] MEDS: SCOPOLAMINE 1 PATCH TOP (11:38)
[2024-12-21] MEDS: LACTATED RINGERS 1,000 ML 42 ML IV (11:38)
--- NOTE | 2024-12-21 14:02 | PM.PREOP ---
Pre-operative Note COVID-19 COVID-19 status: Not tested Interval Note History & Physical reviewed/Exam performed by Physician: Yes Changes to H&P: No
[2024-12-21] MEDS: CEFAZOLIN 2 GM/100 ML PREMIX 100 ML IV (14:16)
--- NOTE | 2024-12-21 14:38 | SUR.OPER ---
Lithotomy on padded OR bed. [place] Pad Positioner under torso. Head on pillow, arms padded and tucked at sides. Legs secured in padded yellow fins stirrups. strap over shoulders
[2024-12-21] MEDS: BUPIVACAINE 0.5% W/ EPI (PF) 30 ML VIAL INJ (14:56)
[2024-12-21] MEDS: fentaNYL 100 MCG/2 ML INJ IV ×2 (17:40→17:54)
[2024-12-21] MEDS: ONDANSETRON 4 MG/2 ML INJ IV ×3 (17:40→20:09)
[2024-12-21] MEDS: hydrOXYzine 50 MG/ML INJ 25 MG IM (17:40)
[2024-12-21] MEDS: diazePAM 10 MG/2 ML SYRINGE 2.5 MG IV (17:52)
--- NOTE | 2024-12-21 17:54 | P.OP_ITS ---
Operative Date/Time/Diagnoses Date of procedure: 12/21/24 Time of procedure: 13:50 Pre-op diagnosis: Menometrorrhagia Chronic Pelvic Pain Adenomyosis (Suspected) Post-op diagnosis: same Procedure & Clinicians Procedure: Procedures Operation Date: 12/21/24 12:45 Actual Procedure Side Surgeon p Laparoscopic Total Hysterectomy with bilateral salpingectomy Bilateral Hay Flower MD Indications: Mildred is a 49 a year old , LMP ended about a week ago, who presents with an 8 to 10 month history of long and heavy menses associated with severe cramping, passage of clots, overflows, and accidents. Menarche occurred at age 11 and she has had regular predictable menses until late 2022 when her menses actually stopped until late April 2024. At that time she started having intermittent episodes of bleeding typically lasting between 10-12 days and as long as 6 weeks. Her typical menses now is a normal flow for 2-3 days followed by flooding for at least 3-4 days followed by spotting and then resumption of heavy bleeding with clots again. This has proved to be extremely difficult for the patient given her professional and personal obligations and a menstrual pain is so severe at times that it is incapacitating. Patient's Pap is overdue and she has never had endometrial sampling performed. Patient's recent ultrasound performed 12/08/2024 shows: FINDINGS: Uterus: Uterus is anteverted and normal in size at 8.4 x 6.4 x 4.9 cm. The myometrium is heterogeneous with a Venetian blind appearance concerning for adenomyosis. The endometrium measures 8.7 mm combined thickness. Endometrium is ill-defined. There is a right anterior intramural fibroid measuring 1.8 x 1.5 x 2.0 cm. Ovaries: The right ovary measures 3.3 x 1.7 x 1.8 cm, with a calculated ovarian volume of 5.3 cc. The left ovary measures 3.4 x 1.5 x 1.9 cm, with a calculated ovarian volume of 5.1 cc. The ovaries have a normal sonographic appearance. Less than 12 follicles can be seen in each ovary. No adnexal masses are seen. Other: No pathologic free abdominal or pelvic fluid. IMPRESSION: Heterogeneous uterus with a Venetian blind appearance concerning for adenomyosis. Endometrium is normal in thickness for a premenopausal female measuring 8.7 mm. Intramural fibroid measuring 2.0 cm. The ovaries are normal in appearance. We had an extended discussion regarding potential causes and contributing factors to her abnormal bleeding, pelvic pain, and severe dysmenorrhea. The ultrasound was reviewed with the patient and the findings on the ultrasound are highly suggestive of adenomyosis. We discussed possible expectant management due to her age and likelihood of menopause occurring in the next 18-36 months but her bleeding and pain is so disruptive she does not feel as though she can wait that long for resolution. We talked about options for managing adenomyosis including Depo-Provera or oral progestin therapy daily which the patient has been on Depo in the past and declines its use again. Endometrial ablation is not considered an advisable approach in the presence of probable adenomyosis and she does not wish to consider endometrial ablation. Insertion of a Mirena IUD was also discussed and she does not want to use an IUD as she does not wish to have anything implanted in her body and can not be guaranteed that the bleeding or cramping will resolve with its use. We finally discussed hysterectomy as an option and she would very much like to have her uterus removed along with remnants of her fallopian tubes with ovarian preservation. Endometrial sampling and Pap were done today and assuming they both return normal, will proceed with total laparoscopic hysterectomy with bilateral salpingectomy.. Patient presents today for her scheduled surgery. Surgeon: Hay Flower Party Plan Demonstrator: Aparna Camacho Anesthesia Type: General Operative Notes Findings: Uterus is upper limits of normal size, diffusely enlarged, and boggy. The surface is slightly distorted by an intramural myoma. Both ovaries appeared to be normal and there is a small follicular cyst within the right ovary. The fallopian tubes appeared to be normal. There was no evidence of endometriosis on either the anterior or posterior [place] and the remainder of the abdominal cavity is normal to laparoscopic inspection Closure Type: primary Specimen(s): left tube, right tube and uterus Applied: catheter Estimated blood loss (mL): 150 Blood products transfused: none Procedure in detail: With the patient in modified dorsal lithotomy position preparations were made by prepping and draping the patient in usual manner for vaginal surgery and insertion of Dorsey catheter. A pre-surgical time-out was then taken in accordance with [facility] Main OR policy. A bivalve speculum was then placed in the vagina and the cervix visualized. The anterior lip of the cervix was then grasped with a single-tooth tenaculum. The uterus was sounded to 9 cm, the endocervical canal dilated slightly, and a VCare uterine manipulator with a medium colpotomy cup was placed. The umbilicus was then infiltrated with 0.5% Marcaine with epinephrine. A 1 cm umbilical incision was made transversely and a Veress needle was used to insufflate the abdominal cavity with carbon dioxide. Once the abdomen was appropriately insufflated, a 5 mm trocar and sleeve were then placed through the umbilical incision. The scope was placed through the trocar and the initial assessment of the intra-abdominal contents carried out. A 2nd and 3rd 5 mm port was then placed 1st in the right mid quadrant from then the left mid quadrant by infiltration of the skin and subcutaneous tissues, a 1 cm transverse incision and insertion of the 5 mm bladeless port. Using a 3 puncture technique, the abdomen and pelvis were inspected laparoscopy and photographically documented. Uterus is mobilized with the VCare manipulator and attention turned to the left adnexa. The distal tube was then grasped and the fimbria varicose divided after coagulation with the PowerSeal device. The dissection was then carried out toward the cornua and the fallopian tube amputated. The tube was removed through a 5 mm port and dissection was then carried down using the PowerSeal device so as to divide the utero-ovarian ligament and the round ligament with blunt and sharp dissection of the broad down to the level of the uterine artery. The uterine artery was then skeletonized after development of a bladder flap, coagulated, and divided. Once hemostasis was assured on the left side attention was turned to the right and the tube, utero-ovarian ligament, round ligament, and broad ligament were dissected in a fashion exactly the same as it had been on the left. The right uterine artery was then visualized after skeletonization and coagulated and divided. The uterus was seen to ernesto after coagulation of both your arteries and the cup was identified through the vaginal muscularis at its insertion with the body of the cervix. Circumferential excision of the vaginal cup was accomplished without difficulty using monopolar current and the uterus mobilized. The uterus was then removed through the vagina. A 4th 5 mm trocar and sleeve were placed deep in the right lower quadrant and the vaginal cuff closed with 2-0 stratafix in 2 layers. Hemostasis was excellent, the abdomen was re-insufflated, and the pelvis inspected laparoscopically. Per clock powder was placed over the cuff, the pelvis was inspected for any abnormality or bleeding, and the ureters were each seen to be peristalsing freely. With complete hemostasis assured, the pneumoperitoneum was vented and the ports removed. All of the 5 mm ports were then closed with 4-0 Monocryl on the skin using inverted interrupted sutures. Skin glue was placed and after the glue was dried, an appropriate dressing was applied. The case was then terminated, the patient awakened, and then transferred to PACU after having tolerated the procedure well. Complications: none Post-operative Condition: stable Disposition: PACU Plan for aftercare: Recovery in ambulatory surgery in discharge home later today if pain is under control and she is tolerating oral intake well.
[2024-12-21] MEDS: OXYCODONE IR 5 MG TABLET PO (18:31)
[2024-12-21] MEDS: METOCLOPRAMIDE 10 MG/2 ML INJ IV (18:32)
[2024-12-21] MEDS: LACTATED RINGERS 1,000 ML 100 ML IV (20:10)
[2024-12-21] MEDS: DOCUSATE 100 MG CAPSULE 200 MG PO (20:10)
[2024-12-21] MEDS: KETOROLAC 30 MG/ML VIAL IV (20:10)
[2024-12-21] MEDS: ACETAMINOPHEN 325 MG TABLET 650 MG PO (20:11)
[2024-12-22] MEDS: KETOROLAC 30 MG/ML VIAL IV ×2 (00:38→06:14)
[2024-12-22] MEDS: ACETAMINOPHEN 325 MG TABLET 650 MG PO ×2 (00:39→06:14)
[2024-12-22] MEDS: LACTATED RINGERS 1,000 ML 100 ML IV (05:37)
[2024-12-22 05:50] LABS: Add Manual Diff / Slide Review NO; Basophils Absolute Auto 100 /uL (0-100); Basophils Percent Auto 0.5 % (0-2); Eosinophils Absolute Auto 0 /uL (0-450); Hematocrit 36.5 % (36-46); Hemoglobin 12.5 g/dL (12.0-16.0); Lymphocytes Absolute Auto 1100 /uL (1100-4500); Lymphocytes Percent Auto 10.1 % (25-40); Mean Corpuscular HGB Conc 34.3 % (30-36); Mean Corpuscular Hemoglobin 29.6 PG (26-34); Mean Corpuscular Volume 86.3 fL (80-100); Monocytes Absolute Auto 300 /uL (0-900); Monocytes Percent Auto 2.5 % (3-14); Neutrophils Absolute Auto 9600 /uL (1500-7000); Neutrophils Percent Auto 86.9 % (50-75); Platelet Count 246 X10^3/uL (150-400); Red Blood Cell Count 4.23 X10^6/uL (4.0-5.2); Red Cell Distribution Width 13.6 % (11.6-14.8); White Blood Cell Count 11.1 X10^3/uL (4.5-11.0)
[2024-12-22 08:50] VITALS: BP 135/69
[2024-12-22] MEDS: LOSARTAN 50 MG TABLET 100 MG PO (08:50)
[2024-12-22] MEDS: DOCUSATE 100 MG CAPSULE 200 MG PO (08:51)
[2024-12-22] MEDS: HYDROXYCHLOROQUINE 200 MG TABLET PO (08:52)
[2024-12-22] MEDS: AMLODIPINE 5 MG TABLET PO (08:52)
[2024-12-22] MEDS: FOLIC ACID 1 MG TABLET 2 MG PO (08:52)
[2024-12-22] MEDS: buPROPion XL 150 MG TAB 300 MG PO (08:52)
[2024-12-22 09:48] VITALS: PULSE 70; RESP 16; TEMP 37; O2SAT 97
--- NOTE | 2024-12-22 10:01 | P.DS_ITS ---
History of Present Illness History of Present Illness Date Patient Seen: 12/22/24 Time Patient Seen: 10:01 Chief complaint: Menometrorrhagia, chronic pelvic pain, adenomyosis Narrative: Mildred is a 49 a year old , LMP ended about a week ago, who presents with an 8 to 10 month history of long and heavy menses associated with severe cramping, passage of clots, overflows, and accidents. Menarche occurred at age 11 and she has had regular predictable menses until late 2022 when her menses actually stopped until late April 2024. At that time she started having intermittent episodes of bleeding typically lasting between 10-12 days and as long as 6 weeks. Her typical menses now is a normal flow for 2-3 days followed by flooding for at least 3-4 days followed by spotting and then resumption of heavy bleeding with clots again. This has proved to be extremely difficult for the patient given her professional and personal obligations and a menstrual pain is so severe at times that it is incapacitating. Patient's Pap is overdue and she has never had endometrial sampling performed. Patient's recent ultrasound performed 12/08/2024 shows: FINDINGS: Uterus: Uterus is anteverted and normal in size at 8.4 x 6.4 x 4.9 cm. The myometrium is heterogeneous with a Venetian blind appearance concerning for adenomyosis. The endometrium measures 8.7 mm combined thickness. Endometrium is ill-defined. There is a right anterior intramural fibroid measuring 1.8 x 1.5 x 2.0 cm. Ovaries: The right ovary measures 3.3 x 1.7 x 1.8 cm, with a calculated ovarian volume of 5.3 cc. The left ovary measures 3.4 x 1.5 x 1.9 cm, with a calculated ovarian volume of 5.1 cc. The ovaries have a normal sonographic appearance. Less than 12 follicles can be seen in each ovary. No adnexal masses are seen. Other: No pathologic free abdominal or pelvic fluid. IMPRESSION: Heterogeneous uterus with a Venetian blind appearance concerning for adenomyosis. Endometrium is normal in thickness for a premenopausal female measuring 8.7 mm. Intramural fibroid measuring 2.0 cm. The ovaries are normal in appearance. We had an extended discussion regarding potential causes and contributing factors to her abnormal bleeding, pelvic pain, and severe dysmenorrhea. The ultrasound was reviewed with the patient and the findings on the ultrasound are highly suggestive of adenomyosis. We discussed possible expectant management due to her age and likelihood of menopause occurring in the next 18-36 months but her bleeding and pain is so disruptive she does not feel as though she can wait that long for resolution. We talked about options for managing adenomyosis including Depo-Provera or oral progestin therapy daily which the patient has been on Depo in the past and declines its use again. Endometrial ablation is not considered an advisable approach in the presence of probable adenomyosis and she does not wish to consider endometrial ablation. Insertion of a Mirena IUD was also discussed and she does not want to use an IUD as she does not wish to have anything implanted in her body and can not be guaranteed that the bleeding or cramping will resolve with its use. We finally discussed hysterectomy as an option and she would very much like to have her uterus removed along with remnants of her fallopian tubes with ovarian preservation. Endometrial sampling and Pap were done today and assuming they both return normal, will proceed with total laparoscopic hysterectomy with bilateral salpingectomy.. Patient presents today for her scheduled surgery. Discharge Providers Provider Date of admission: 12/21/2024 Discharge Date: 12/22/24 Primary care physician: Carolyn Maharaj DO Discharge provider: Hay Flower MD Summary Hospital Course Discharge Diagnosis: Menometrorrhagia Chronic pelvic pain Adenomyosis (suspected) Status post total laparoscopic hysterectomy with bilateral salpingectomy Hospital Course: Mildred was admitted on the morning of 12/21/2024 and underwent an uneventful total laparoscopic hysterectomy with bilateral salpingectomy later that day. Full details of the procedure well summarized on my operative note of that date. Following surgery the patient has done extremely well with prompt return of bowel and bladder function, she is ambulating independently, tolerating a regular diet, and her pain is well controlled with oral pain medications. She will be discharged at this time to home in an afebrile normotensive condition after counseling regarding precautionary symptoms, limitations of activity, medications, and plans for follow-up which will be in 2 weeks. Medications at discharge will include resumption of all pre-admission medications as well as hydromorphone 2 mg p.o. every 4 hours as needed for pain, dispense 20 with no refills, and Cipro 500 mg p.o. b.i.d. x5 days for UTI prophylaxis following catheterization. Status at Discharge Cognitive/behavioral status at discharge: oriented Functional status at discharge: independent ambulation Overall status at discharge: patient is progressing back to baseline Time Spent with Patient Time spent: Less than 30 minutes Exam Vital Signs (past 8 hours): - 12/22/24 08:50 12/22/24 09:48 Temperature 98.6 F Pulse Rate 70 Respiratory Rate 16 Blood Pressure 135/69 Pulse Oximetry 97 Oxygen Delivery Method Room Air Oxygen Flow Rate 0 Const General: cooperative and comfortable Nutritional Appearance: average body habitus Orientation: alert and oriented x3 HENMT Head: normal to inspection, atraumatic and abrasion Ears: hearing grossly normal bilaterally Face and sinus: face symmetric Eyes General: appearance normal, both eyes and all related structures Conjunctivae: conjunctivae normal Sclera: sclerae normal EOM: EOM intact bilaterally Neck Neck: normal visual inspection Resp Effort & Inspection: normal respiratory effort and able to speak in complete sentences Auscultation: clear to auscultation bilaterally Cardio Rate: regular rate Rhythm: regular rhythm Heart Sounds: S1 normal, S2 normal and no murmurs GI Inspection: normal to inspection and incision (Surgical dressings clean and dry) Palpation: soft, no hepatosplenomegaly and tender (Mild, diffuse postsurgical tenderness) External Female Exam: other (No significant bleeding noted) Extrem General: no calf tenderness Psych Appearance: grossly normal Mental Status: mental status grossly normal Speech and Movement: speech and movement normal Mood: congruent mood Affect: normal affect Attitude: cooperative Thought Process: normal Thought Content: normal Judgment: judgment good Objective Labs 12/22/24 05:37 Labs: Laboratory Results - last 24 hr 12/22/24 05:37 WBC 11.1 H RBC 4.23 Hgb 12.5 Hct 36.5 MCV 86.3 MCH 29.6 MCHC 34.3 RDW 13.6 Plt Count 246 Neut % (Auto) 86.9 H Lymph % (Auto) 10.1 L [place] % (Auto) 2.5 L Eos % (Auto) 0.0 L Baso % (Auto) 0.5 Neut # (Auto) 9600 H Lymph # (Auto) 1100 [place] # (Auto) 300 Eos # (Auto) 0 Baso # (Auto) 100 [facility] Medical History (Updated 12/13/24 @ 13:37 by Marcela Bustillos RN) Morbid obesity DARRYL (generalized anxiety disorder) Elevated serum creatinine Nail pitting Chronic pain in right foot Wears glasses Psoriasis (~1986) Osteoarthritis (~2004) Anxiety (~1982) Anorexia nervosa Foot pain (~1979) Ankle pain (~1979) Chicken pox (~1978) Human papilloma virus (~2014) History of colon polyps (2013) Depression (2019) Asthma (~1990) Essential hypertension (2016) Surgical History (Updated 12/13/24 @ 13:37 by Marcela Bustillos RN) Anesthesia History of section (~12/28/05) History of ankle surgery (~1979) Family History Father Diabetes mellitus History of heart disease Hypertension Hyperlipidemia Stroke Mother Cancer Diabetes mellitus Multiple myeloma Brother Stroke History of heart disease Hypertension Sister Hypertension History of heart disease Sister Mental health problem Social History household members: significant other, family and children Smoking Status: Never smoker second hand exposure: No alcohol intake: current substance use type: marijuana (smoke, rare.) Discharge Assessment & Plan Assessment and Plan Assessment: Menometrorrhagia Chronic pelvic pain Adenomyosis (suspected) Status post total laparoscopic hysterectomy with bilateral salpingectomy Plan of Treatment: Routine postoperative care with follow-up planned for 2 weeks after surgery or as needed. Discharge Plan Discharge Plan Patient Disposition: Home Provider Discharge Comment: Please review the written instructions you received when you were discharged from the hospital. Your follow-up appointment is scheduled for 2 weeks after your surgery and I look forward to seeing you then. If however in the meanwhile you have any issues, concerns, or questions, please contact me either through the office phone at [phone], or via the patient portal. Discharge orders & Medications Discharge Orders: Discharge (Order); Ordered 12/22/24 Ordered By: Hay Flower Prescriptions: New hydromorphone 2 mg Tablet 2 mg PO Q4H PRN (Reason: Pain, Moderate (4-6)) Qty: 20 0RF ciprofloxacin HCl [Cipro] 500 mg tablet 500 mg PO BID 5 Days Qty: 10 0RF Continued albuterol sulfate [Proventil HFA] 90 mcg/actuation HFA aerosol inhaler 2 puff inhalation Q4-6H PRN (Reason: asthma) Qty: 8.5 2RF amlodipine 5 mg tablet 5 mg PO DAILY Qty: 90 3RF Rx Instructions: take one tablet by mouth once daily bupropion HCl [Wellbutrin XL] 300 mg tablet extended release 24 hr 300 mg PO QAM Qty: 90 3RF losartan 100 mg tablet 100 mg PO DAILY Qty: 90 3RF folic acid 1 mg tablet 2 mg PO DAILY Humira(CF) Pen 40 mg/0.4 mL pen injector kit 40 mg SUBCUT Q2W hydroxychloroquine 200 mg tablet 200 mg PO BID leflunomide 20 mg tablet 20 mg PO DAILY Patient Comments: Rhumatology (DME) Disabled Parking Permit See Rx Instructions .ROUTE .MEDSUPPLY Qty: 1 0RF Rx Instructions: I find this patient to be medically disabled and qualified for Disabled Parking as indicated on the accompanying Disabled Parking Application for Individuals. Follow up/Referrals: Carolyn Maharaj DO [Primary Care Provider] - Hay Flower MD [Physician] - Diet/Activity/Treatments Diet: Diet as Tolerated Activity: As tolerated Other treatments: [id number]-[id number] Tylenol and/or ibuprofen may be used for additional pain relief. Ftsz-die-azmhstu stool softeners and/or MiraLax may be used as needed for constipation. Skin/Wound/Dressing Care Report to your healthcare provider any signs of infection, such as:: chills, fever, increased pain, unusual drainage and unusual redness Dressing: Dressing should be removed on the morning of 12/23/2024 Visit Report/Discharge Packet Instructions: DI for Hysterectomy, DI for Laparoscopy, DI for Prescription Opioid Use Stand Alone Forms: Surgery Discharge Discharge Data Primary Care Provider: Carolyn Maharaj Attending Provider: Hay Flower Quality VTE Deep Vein Thrombosis/Pulmonary Embolism Present on Admission: No IH PROFEE Charge Codes Discharge inpatient/observation: 16085
--- NOTE | 2024-12-22 10:28 | PC.NURSE ---
D/c instructions reviewed with pt. Discussed s/s of infection, how to prevent constipation, and not to drive while taking narcotics. IV removed. Pt confirmed that she had all of her belongings. 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
== END 2024-12-22 10:31 | disposition home or self-care (01) ==
LOC: OR 10:41 → AC 10:42
PROVIDERS: PCP Family Medicine; Referring Provider Obstetrics & Gynecology; Visit Provider Obstetrics & Gynecology
PROC: 0UT94ZZ Resection of Uterus, Percutaneous Endoscopic Approach (ICD-10-PCS; CPT 58571; principal; 2024-12-21 12:45)
DX: N93.8 Other specified abnormal uterine and vaginal bleeding (principal); N80.03 Adenomyosis of the uterus; D25.1 Intramural leiomyoma of uterus; N83.01 Follicular cyst of right ovary; N83.8 Other noninflammatory disorders of ovary, fallopian tube and broad ligament
CPT/HCPCS: 58571; 36415; 85025; J0690; J1100; J1171; J1885; J2405; J2704; J2765; J3010; J3360; J3410; J3490

== ENCOUNTER → 2025-05-02 11:59 | Outpatient (CLI) | payer OTHER, SELFPAY ==
[2024-12-21 20:55] VITALS: BMI 40.1
--- NOTE | 2025-05-02 12:00 | DI.US.S_ITS ---
PROCEDURE: US THYROID INDICATIONS: DIFFICULTY SWALLOWING TECHNIQUE: Real-time scanning was performed of the thyroid gland, with image documentation. COMPARISON: None. FINDINGS: Thyroid: Right lobe measures 5.3 cm. Left lobe measures 4.6 cm. Isthmus is 0.2 cm thick. Echotexture is heterogeneous. There is a 1 cm hyperechoic solid nodule in the right lobe, therefore benign IMPRESSION: Mild thyroid enlargement, without suspicious focal lesion seen. ACR TI-RADS definitions and recommendations: TI-RADS 1 (benign): 0 points. FNA not needed. TI-RADS 2 (not suspicious): 2 points. FNA not needed. TI-RADS 3: 3 points. * FNA if 2.5 cm or larger, follow up if 1.5 cm or larger (at 1, 3, and 5 years). TI-RADS 4: 4-6 points. * FNA if 1.5 cm or larger, follow up if 1 cm or larger (at 1, 2, 3, and 5 years). TI-RADS 5: 7 points or more. * FNA if 1 cm or larger, follow up if 0.5 cm or larger (every year for 5 years). Dictated by: Bucky Pierre M.D. on 05/02/2025 at 21:09 Approved by: Bucky Pierre M.D. on 05/02/2025 at 21:12
== END ==
PROVIDERS: PCP Family Medicine; Referring Provider Family Medicine; Visit Provider Family Medicine
DX: R09.A2 Foreign body sensation, throat (principal); E04.9 Nontoxic goiter, unspecified
CPT/HCPCS: 76536

== ENCOUNTER → 2025-05-12 10:55 | Outpatient (CLI) | payer OTHER, SELFPAY ==
[2024-12-21 20:55] VITALS: BMI 40.1
[2025-05-12 11:21] LABS: Appearance Urine UA SL CLOUDY; Bilirubin Urine UA NEGATIVE (NEGATIVE); Color Urine UA YELLOW; Glucose Urine UA NEGATIVE (Negative); Ketones Urine UA NEGATIVE (NEGATIVE); Leukocyte Esterase Urine UA 2+ (NEGATIVE); Nitrite Urine UA NEGATIVE (Negative); Occult Blood Urine UA NEGATIVE (Negative); Protein Urine UA NEGATIVE (Negative); Specific Gravity Urine UA >=1.030 (1.000-1.035); Urobilinogen Urine UA 0.2 E.U./dL (0.2)
[2025-05-12 11:23] LABS: pH Urine UA 6.0 (4.5-8.0)
[2025-05-12 11:56] LABS: Culture Indicated Urine Cult Not Indicated
== END ==
PROVIDERS: PCP Family Medicine; Referring Provider Obstetrics & Gynecology; Visit Provider Obstetrics & Gynecology
DX: R39.15 Urgency of urination (principal)
CPT/HCPCS: 36415; 81001

== ENCOUNTER 2025-05-30 09:17 | Outpatient (RCR) | payer OTHER, SELFPAY ==
[2024-12-21 20:55] VITALS: BMI 40.1
--- NOTE | 2025-05-30 11:58 | ST.OPIE ---
Visit Care Team Role Provider Type Carolyn Maharaj DO Attending Provider Physician Family Provider Primary Care Provider Referring Provider Specialty: Family Practice Address: [address] [place] [address], [address], [place], [address] Email: [email or web address] Speech-Language Pathology Initial Evaluation [facility] Clinical Swallow Evaluation Start: 05/30/25 10:23 Freq: Status: Active Protocol: Document 05/30/25 10:23 SS (Rec: 05/30/25 10:43 SS DESKTOP) Clinical Swallow Evaluation Session Time Visit Start Time 09:45 Visit Stop Time 10:20 Total Visit Minutes 35 Visit Information Visit Number 1 Plan of Care Dates 05/30/25-08/29/25 Insurance [employer] (max x6 visits PCY, can request x6 more) Information Referral Referring Provider Dr. Carolyn Maharaj DO Reason for Referral Dysphagia Setting Assessment Location Outpatient Care Visit Type Note Type Initial evaluation Patient Information Identification Type Name History Mildred Cobian is a 49-year-old female, referred for a clinical swallow evaluation by Dr. Carolyn Maharaj due to swallowing concerns following intubation for surgery. Past pertinent medical history includes osteoarthritis, severe degeneration of cervical spine, sleep apnea, allergies, and asthma. Pt had undergone a hysterectomy in December during which she was intubated, and has since had episodes of apnea and globous sensation in her throat, with and without PO intake. Pt also is experiencing increased GERD and GI symptoms and difficulty inhaling (?feels like I?m breathing in through a straw?). She denied history of PNA. Pt endorses changes in swallowing around two years ago, which have gradually become worse. She describes swallowing as feeling food stuck in her throat and sensation of having to bypass a lump. She feels that food becomes trapped in her throat which causes a choking sensation and pain. If she uses a liquid wash, it feels as though the bolus moved to the right side of her throat and clears. She is not restricting any foods at this time, but chews her food carefully and uses a liquid wash. She denies unintentional weight loss. She denies sensation of intake ?going down the wrong way?, but endorses chronic cough with increased sensation of globus sensation. Pt has seen ENT at [facility] about a month ago; [facility] to attempt to obtain records. Pt reported visualization was WNL with plan to pursue allergy testing, sleep study for apnea, and has a scheduled ENT follow up appointment in July. Subjective Pt arrived ot he session on time. She was motivated to Observations participate and provided her case history. Reported by Patient/Caregiver Pain/Discomfort Yes Location Neck Other Symptoms Choking,Coughing,Difficulty swallowing pills,Difficulty swallowing solids,Food gets stuck,Pain on swallowing, Other Comment Globous sensation at all times, regardless of PO intake . Current Diet Regular (IDDSI 7) Baseline Feeding Independent in self-feeding Method Type of Patient EAT-10 Questionnaire (e.g., EAT-10, MDADI, etc. ) Results The Eating Assessment Tool (EAT-10) was administered. This tool is a symptom-specific outcome instrument for dysphagia. It consists of ten statements regarding the patient?s swallow and the patient scores each on a scale of 0-4, with 0 indicating no problem and 4 indicating a severe problem. A score of >3/40 could indicate a swallowing impairment that warrants further assessment/treatment. The patient scored a 22/40, indicating the need for further assessment. RSI administered following patient report of globus sensation and coughing. The RSI is a questionnaire in which the patient rates nine different reflux related problems in a scale of 0 ?no problem? to 5 ?severe problem? in order to screen for laryngopharyngeal reflux (LPR). A score of >13/45 indicated the presence of LPR. The patent score a 30/45. Recommend she follow with PCP re: possible LPR. The IDDSI Framework Protocol: IDDSI.1 Objective Assessment Mental Status Alert,Responsive,Cooperative Oral Integrity WFL Dentition Within normal limits Lip Function Within normal limits Tongue Function Within normal limits Jaw Function Within normal limits Hard/Soft Palate Within normal limits Function Respiratory Within normal limits Sufficiency Comment CRANIAL NERVE EXAM CN V (Trigeminal): intact b/l CN VII (Facial): intact b/l CN IX/X (Glossopharyngeal/Vagus): intact b/l CN XII (Hypoglossal): intact b/l DENTITION/ORAL HEALTH Patient?s oral health is good. Patient has own dentition with dental work noted. Food and Liquid Trials Position During Upright (90 degrees) Assessment Liquids Trialed Thin (IDDSI 0) Solid Trials Purred (IDDSI 4),Soft & Bite-sized (IDDSI 6),Regular ( IDDSI 7) Administration Type Cup single sip,Cup consecutive sips,Straw,Self-feeding Oral Impairment Within normal limits Oral Phase Comments Pt observed across trials of thin liquids (>3 oz water) via cup and straw, puree via tsp (apple sauce), soft/ bite sized via tsp (diced peaches), and cracker. Pt exhibited adequate bolus retrieval without anterior loss of bolus. Bolus manipulation seemed organized and timely with no oral residue noted across trials. Pharyngeal Mildly impaired Impairment Pharyngeal Phase Clinical signs/symptoms of possible pharyngeal Comments dysphagia include globus sensation across trials of solids and sensation of pharyngeal residue despite multiple swallows and use of liquid wash. No overt s/sx of aspiration observed. No change to vocal quality. Fatigue/Endurance Endurance WNL Briggs Swallow Yes Protocol Results The Briggs Swallow Protocol is an evidence-based swallow screening protocol to determine aspiration risk. This tool has been validated across a number of different patient diagnoses and in a number of clinical settings. This is the only screening instrument that both identifies aspiration risk and, when passed, is able to recommend specific oral diets without the need for further instrumental dysphagia testing. Based upon research by Drs. Serjio Whatley and Debbie Moreno, this is a reliable and validated swallow screening protocol. Cognitive Screen: PASS Results with 3oz water test: PASS Results with cracker: PASS The IDDSI Framework Protocol: IDDSI.1 Findings Swallowing Function Pharyngeal phase dysphagia Severity of Swallow Mildly impaired Impairment Contributing Factors Excessive pharyngeal residue to Swallow Impairment Comments Globus sensation Prognosis Good Based on Cognitive status,Age,Duration of symptoms/severity Comment Pt presents with within normal limits oral phase function and concern for possible pharyngeal phase dysphagia given sensation of pharyngeal residue and globus sensation, occasionally resulting in choking when pt attempts to clear. Pt appears to be at a low risk for aspiration at this time. Based on pt?s good oral health status and overall immune function, pt currently remains at a low risk of pulmonary compromise associated with aspiration at this time. Modified barium swallow study (MBSS) is indicated to thoroughly further assess pt?s swallow pathophysiology to visualize and assess swallow function and anatomy, determine aspiration risk, make appropriate and updated diet and treatment recommendations, as well as to identify need for additional referrals. No change to diet at this time. The plan is for the pt to complete a modified barium swallow study to further assess swallowing pathophysiology in order to determine treatment plan. Further goals will be established based on MBSS results. MD has placed order for MBSS per [facility] request. Impact on Safety and No limitations Functioning Recommendations Instrumental Yes Assessment Swallowing Treatment Yes Frequency 1x/week (pending MBSS results) Duration 3 months Recommended Solids Regular (IDDSI 7) Recommended Liquids Thin (IDDSI 0) Other General safe swallowing strategies and use of liquid Recommendations wash to clear potential pharyngeal residue. Safety Precautions/ Remain upright (90 degrees) during all oral intake, Swallowing Upright position at least 30 minutes after meals,Small Recommendations bites and sips when eating,Slow rate; swallow between bites,Multiple swallows,Alternate liquids and solids Medication As Tolerated Recommendations Referrals Recommended Otolaryngology/ENT Referrals Education Patient/Caregiver Described results of evaluation,Patient expressed Education understanding of evaluation,Patient expressed agreement with goals & treatment plans Goals Short-term Goals Patient will complete MBSS to further evaluate swallowing pathophysiology and determine next steps in POC. Long-term Goals Patient will safely tolerate least restrictive diet consistency to allow for safe consumption of daily meals without globus sensation or s/sx of aspiration.
--- NOTE | 2025-05-30 11:59 | ST.OPPOC ---
Physical, Occupational & Speech Therapy At [facility] Visit Care Team Role Provider Type Carolyn Maharaj DO Attending Provider Physician Family Provider Primary Care Provider Referring Provider Address: [address] [place] [address], [address], [place], [address] Speech Pathology Plan of Care Plan of Care Dates 05/30/25-08/29/[address] Carolyn Maharaj DO Patient History Mildred Cobian is a 49-year-old female, referred for a clinical swallow evaluation by Dr. Carolyn Maharaj due to swallowing concerns following intubation for surgery. Past pertinent medical history includes osteoarthritis, severe degeneration of cervical spine, sleep apnea, allergies, and asthma. Pt had undergone a hysterectomy in December during which she was intubated, and has since had episodes of apnea and globous sensation in her throat, with and without PO intake. Pt also is experiencing increased GERD and GI symptoms and difficulty inhaling (?feels like I?m breathing in through a straw?). She denied history of PNA. Pt endorses changes in swallowing around two years ago, which have gradually become worse. She describes swallowing as feeling food stuck in her throat and sensation of having to bypass a lump. She feels that food becomes trapped in her throat which causes a choking sensation and pain. If she uses a liquid wash, it feels as though the bolus moved to the right side of her throat and clears. She is not restricting any foods at this time, but chews her food carefully and uses a liquid wash. She denies unintentional weight loss. She denies sensation of intake ?going down the wrong way?, but endorses chronic cough with increased sensation of globus sensation. 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 Pt reported visualization was WNL with plan to pursue allergy testing, sleep study for apnea, and has a scheduled ENT follow up appointment in July. Short-term Goals Patient will complete MBSS to further evaluate swallowing pathophysiology and determine next steps in POC. Long-term Goals Patient will safely tolerate least restrictive diet consistency to allow for safe consumption of daily meals without globus sensation or s/sx of aspiration. Comment: Electronically Signed by: MARIANO Logan 05/30/25 1159 If you are in agreement with this Plan of Care, please return a signed and dated copy. I have reviewed this Plan of Care and certify that the skilled therapy services above are required to meet the patient?s needs. Physician Signature Date Printed Name and Credentials Clinical Instructor Signature Printed Name and Credentials
--- NOTE | 2025-08-07 11:17 | ST.OPDS ---
Visit Care Team Role Provider Type Carolyn Maharaj DO Attending Provider Physician Family Provider Primary Care Provider Referring Provider Address: [address] [place] [address], [address], [place], [address] [employer]IAN called pt to follow up on MBSS recommendation. Pt expressed her symptoms have resolved and she is no longer experiencing swallowing issues. Encouraged pt to follow up with PCP if she experiences changes to her swallowing function in the future. Pt account discharged at this time.
== END 2025-08-08 11:15 | disposition home or self-care (01) ==
LOC: SP 09:17
PROVIDERS: Family Provider Family Medicine; PCP Family Medicine; Referring Provider Family Medicine; Visit Provider Family Medicine
DX: R13.10 Dysphagia, unspecified (principal)
CPT/HCPCS: 92610

== ENCOUNTER → 2025-07-19 09:38 | Outpatient (CLI) | payer OTHER, SELFPAY ==
[2024-12-21 20:55] VITALS: BMI 40.1
--- NOTE | 2025-07-19 09:42 | DI.RAD.S_ITS ---
PROCEDURE: XR LUMBAR SPINE 2-3V INDICATIONS: low back pain TECHNIQUE: 3 views of the lumbar spine were acquired. COMPARISON: None. FINDINGS: Bones: 5 [id number] vertebrae are present. There is slightly dextroscoliotic bony alignment. No vertebral body compression fractures. No suspicious bony lesions. Mild facet osteoarthritis noted at the L4-5 and L5-S1 levels without subluxation. Soft tissues: Overlying bowel gas pattern is normal. No suspicious soft tissue calcifications. IMPRESSION: No acute bony abnormality. No prior compression fracture found. Dictated by: Jeffrey Henriquez M.D. on 07/19/2025 at 10:01 Approved by: Jeffrey Henriquez M.D. on 07/19/2025 at 10:02
--- NOTE | 2025-07-19 09:42 | DI.CT.S_ITS ---
PROCEDURE: CT HEAD/BRAIN WO CON INDICATIONS: headache x 2 months TECHNIQUE: Noncontrast 4.5 mm thick angled axial sections acquired from the foramen magnum to the vertex, with coronal and sagittal reformats. For radiation dose reduction, the following was used: automated exposure control, adjustment of mA and/or kV according to patient size. COMPARISON: None. FINDINGS: Image quality: Diagnostic. CSF spaces: Basal cisterns are patent. No extra-axial fluid collections. Ventricles are normal in size and shape. Brain: No midline shift. No intracranial mass effect or hemorrhage. Lai- white matter interface is normal. Skull and face: Calvarium and visualized facial bones are intact, without suspicious lesions. Sinuses: Visualized sinuses and mastoids are clear. IMPRESSION: No acute intracranial pathology. Dictated by: Jeffrey Henriquez M.D. on 07/19/2025 at 10:02 Approved by: Jeffrey Henriquez M.D. on 07/19/2025 at 10:03
--- NOTE | 2025-07-19 09:44 | DI.CT.S_ITS ---
PROCEDURE: CT CERVICAL SPINE WO CON INDICATIONS: Chronic neck pain TECHNIQUE: Noncontrast 3 mm thick sections acquired from the skull base to the T4 level. Sagittal and coronal reformats were then constructed. For radiation dose reduction, the following was used: automated exposure control, adjustment of mA and/or kV according to patient size. COMPARISON: [facility], CT, CT HEAD/BRAIN WO CON, 07/19/2025, 9:44. FINDINGS: Image quality: Excellent. Bones: No fractures or dislocations. Visualized superior ribs are intact. Moderate mid cervical degenerative disc disease noted at C5-6 and to a greater degree at C6-7. Soft tissues: Prevertebral soft tissues are normal in thickness. No paravertebral hematomas. No apical pneumothoraces. IMPRESSION: No displaced fracture or traumatic subluxation. Moderate C5-6 and more prominent C6-7 degenerative disc disease without evidence of prior trauma in that area. Dictated by: Jeffrey Henriquez M.D. on 07/19/2025 at 10:03 Approved by: Jeffrey Henriquez M.D. on 07/19/2025 at 10:05
== END ==
PROVIDERS: Family Provider Family Medicine; PCP Family Medicine; Referring Provider Family Medicine; Visit Provider Family Medicine
DX: G43.909 Migraine, unspecified, not intractable, without status migrainosus (principal); M50.322 Other cervical disc degeneration at C5-C6 level; M47.816 Spondylosis without myelopathy or radiculopathy, lumbar region; M47.817 Spondylosis without myelopathy or radiculopathy, lumbosacral region; M54.50 Low back pain, unspecified; G89.29 Other chronic pain
CPT/HCPCS: 70450; 72100; 72125